=== PATIENT | male | born 1930 | race Caucasian/White ===

== ENCOUNTER 2019-02-09 09:10 | Inpatient (IN) | payer OTHER | END 2019-02-10 18:20 | disposition home health service (06) | LOC: ER 09:10 → TELE-EAST 11:26 | DX: I24.9 Acute ischemic heart disease, unspecified (principal); I11.9 Hypertensive heart disease without heart failure; I48.2 Chronic atrial fibrillation; E11.9 Type 2 diabetes mellitus without complications ==

== ENCOUNTER 2020-03-29 08:28 | Inpatient (IN) | payer OTHER ==
[~2020-03-29] VITALS: Ht 167.6 cm; Wt 68.3 kg
[~2020-03-29 08:28] MED LIST: APIX2.5T PO; ATOR20TA50 PO; LEVEMIR SC; METF-371 PO; METO-159 PO; RANI300C7 PO; SITA100T7 PO
[2020-03-29 09:47] LABS: Basophils # (auto) 0.1 10 ^3/uL (0-0.2); Basophils % (auto) 0.6 % (0.0-2.0); Eosinophils # (auto) 0.2 10 ^3/uL (0-0.8); Eosinophils % (auto) 1.2 % (0.0-7.0); Hematocrit 42.9 % (41.0-53.0); Hemoglobin 13.9 g/dL (13.5-17.5); Lymphocytes # (auto) 1.1 10 ^3/uL (0.4-5.4); Lymphocytes % (auto) 9.2 % (10.0-50.0); Mean Corpuscular Hemoglobin 30.9 pg (28.0-32.0); Mean Corpuscular Hgb Conc. 32.3 g/dL (32.0-36.0); Mean Corpuscular Volume 95.7 fL (80.0-100.0); Monocytes # (auto) 0.6 10 ^3/uL (0-1.3); Neutrophils # (auto) 10.5 10 ^3/uL (1.6-8.6); Nucleated Red Blood Cells % 0.1 %; Platelet Count (auto) 178 10^3/uL (140-450); Red Blood Cells 4.48 10^6/uL (4.5-5.90); Red Cell Distribution Width 13.6 % (11.8-14.3); White Blood Cell 12.5 10^3/uL (4.4-10.8)
[2020-03-29 10:04] LABS: Magnesium 2.2 mg/dL (1.6-2.6)
[2020-03-29 10:05] LABS: Albumin 3.2 g/dL (3.4-5.0); Calcium 9.1 mg/dL (8.5-10.1); Potassium 4.8 mmol/L (3.5-5.1)
[2020-03-29 10:07] LABS: BUN/Creatinine Ratio 12.8
[2020-03-29 10:10] LABS: Bilirubin, Total 0.7 mg/dL (0.2-1.0); Total Protein 6.6 g/dL (6.4-8.2)
[2020-03-29 10:16] LABS: INR 1.08 (0.9-1.15); Partial Thromboplastin Time 25.3 sec (23.0-31.2)
[2020-03-29] MEDS ORDERED: NITROGLYCERIN 0.4 MG SL TAB SL PRN (12:30)
[2020-03-29] MEDS ORDERED: ACETAMINOPHEN 325 MG TAB PO PRN (12:30)
[2020-03-29] MEDS ORDERED: MORPHINE SULF INJ 2 MG/ML SYRINGE 1ML IV PRN (12:30)
[2020-03-29] MEDS ORDERED: DEXTROSE (50%) 50ML SYRG IV PRN (12:30)
[2020-03-29] MEDS ORDERED: CLOP75TA28 PO (14:03)
[2020-03-29] MEDS ORDERED: OMEP-260 PO (14:03)
[2020-03-29] MEDS ORDERED: INSLANTI SC (14:03)
[2020-03-29] MEDS ORDERED: ATOR40TA52 PO (14:03)
[2020-03-29] MEDS ORDERED: LISI-646 PO (14:07)
[2020-03-29] MEDS ORDERED: AMLO-483 PO (14:11)
[2020-03-29] MEDS: HYDROcodone-ACET 5/325MG TAB PO PRN ×2 (15:00→22:08)
[2020-03-29] MEDS: ACCU-CHEK COMFORT CURVE STRIP VI SCH ×2 (17:45→22:08)
[2020-03-29] MEDS: InsuLIN REG 1unit/0.01ml Soln (100units/ml) SC SCH ×2 (17:45→22:07)
--- NOTE | 2020-03-29 21:55 | NUR ---
WOUND PHOTOS TO RIGHT FOREHEAD WOUND FORM FILLED OUT AND FILED.
[2020-03-29 22:00] VITALS: BP 120/71
--- NOTE | 2020-03-29 22:40 | NUR ---
SOLID FIBER PASTER OPERATOR CALLED FOR PERSONAL BELONGINGS PATIENT REQUESTS IN SAFE. WALLET WITH $459 IN AC, COUNTED BY TO RNs AND PATIENT. 5 CARDS; LAST 4 NUMBERS RECORDED. CAR KEYS AND 1 HEARING AID.
[2020-03-29 22:45] VITALS: BP 118/51
--- NOTE | 2020-03-29 23:00 | NUR ---
BELONGINGS BAG NUMBER [id number] ARTICLE DESCRIPTION ON THE FRONT OF THE BAG READS "CAR KEYS, HEARING AID, 459 DOLLARS AC, WALLET, CARDS [phone]" PLACED IN SECURE YEH AC PROFESSOR OF HISTORY GUIDANCE SECRETARY OFFICE.
[2020-03-30 05:00] VITALS: BP 149/69
[2020-03-30] MEDS: InsuLIN REG 1unit/0.01ml Soln (100units/ml) SC SCH ×4 (06:12→21:56)
[2020-03-30] MEDS: ACCU-CHEK COMFORT CURVE STRIP VI SCH ×4 (06:13→22:00)
--- NOTE | 2020-03-30 07:30 | NUR ---
RECEIVED REPORT AND CONTINUATION OF CARE,PATIENT AWAKE,ALERT,HARD OF HEARING,ON ROOM AIR,NO DISTRESS NO DISCOMFORT, LEFT ARM SHOULDER BRUISED AND SWOLLEN,LEFT ARM SLING IN USED,CALL LIGHT WITHIN REACH PATIENT REMINDED INSTRUCTED TO CALL FOR ASSISTANCE,PATIENT VERBALIZED UNDERSTANDING.
--- NOTE | 2020-03-30 08:15 | NUR ---
SON NATALIE CALLED (PASS WORD PROVIDED) UPDATED WITH PLAN OF CARE.
[2020-03-30 09:00] VITALS: BP 146/65
--- NOTE | 2020-03-30 09:05 | NUR ---
CALLED AND SPOKE TO PATIENT SON SEVERIANO (PASSWORD PROVIDED AND CONFIRMED) CLARIFIED DOSE OF PATIENT HOME MEDICATION AMLODIPINE,PER SEVERIANO ,PATIENT TAKES AMLODIPINE 2.5 MG PO 3X A DAY,HOSPITAL PHARMACY INFORMED.
--- NOTE | 2020-03-30 10:00 | NUR ---
PHYSICAL THERAPY OOB AMBULATED WITH PHYSICAL THERAPY USES WALKER IN HALLWAY,BACK TO BED TOLERATED ACTIVITY BU C/O LEFT UPPER ARM/SHOUILDER PAIN
[2020-03-30] MEDS: METOPROLOL TARTRATE 50 MG TAB PO SCH ×2 (10:36→21:57)
[2020-03-30] MEDS: HYDROcodone-ACET 5/325MG TAB PO PRN ×2 (10:38→19:53)
[2020-03-30] MEDS: LISINOPRIL 20 MG TAB PO SCH ×2 (10:38→21:58)
--- NOTE | 2020-03-30 10:38 | NUR ---
C/O LEFT UPPER ARM AND SHOULDER PAIN SCALE OF 8/10 MEDICATED WITH NORCO 5/325 1 TAB P[O, SEE eMAR FOR DETAIL
--- NOTE | 2020-03-30 12:10 | NUR ---
WOUND CARE NOTE: Wound care in to see patient per wound care request regarding "Right Forehead laceration" Bedside nurse took photograph of patient's wound upon admission for reference. Patient is 89 years old male with admitting diagnosis of Humerus Fracture. Patient is resting in bed in Rm. 220B. Patient is awake, alert and oriented. Patient is in no stated pain at this time and he appears to be in no pain using Coughlin Baez Faces Pain Scale. He's self turning and repositioning and his Junito score is 19. Patient had a fall and scheduled to have ORIF on 04/01/20. He has L arm sling. Patient noted with 2x1.8cm hyper granulating wound/growth to Rt forehead. Patient reported that "it started as pimple and just grow". 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 Cleansed patient's R forehead wound with NS, patted dry with gauze, applied Thera honey gauze and covered with Opti foam gentle dressing. Patient tolerated well.be din low position, call calix on hand, bed alarm on. No further wound care monitoring needed at this time. RECOMMENDATION: Nursing to continue with EOD/PRN dressing change to R forehead wound per MD order, redistribute pressure points with pillows. Addendum: 03/30/20 at 1709 by Sunshine Dean RN Amended: Links added.
--- NOTE | 2020-03-30 12:20 | NUR ---
PATIENT SON SEVERIANO PICKED UP HOME MEDICATION IN X 2 CONTAINERS,SEE PATIENT BELONGINGS LIST
[2020-03-30 13:00] VITALS: BP 122/51
[2020-03-30] MEDS: OMEPRAZOLE 20MG/10ML ORAL SUSP PO SCH (13:23)
[2020-03-30] MEDS: amLODIPine BESYLATE 5 MG TAB PO SCH ×2 (15:15→21:58)
[2020-03-30 17:00] VITALS: BP 149/72
[2020-03-30] MEDS: ATORVASTATIN 20 MG TAB PO SCH (17:48)
--- NOTE | 2020-03-30 18:51 | NUR ---
NO C/O PAIN, NO DISTRESS,NO DISCOMFORT.
--- NOTE | 2020-03-30 19:53 | NUR ---
PAIN ASSESSMENT The patient reports having 8/10 left arm pain after being assisted from the bedside commode to the bed. Patient requested pain medication. Will administer PRN [place] and will reassess the patient's pain.
--- NOTE | 2020-03-30 21:00 | NUR ---
PAIN REASSESSMENT The patient's pain rates his pain as 5/10. Patient is resting comfortably in his bed. Will continue to monitor the patient's status.
[2020-03-30 22:00] VITALS: BP 128/70
[2020-03-30 22:16] LABS: Basophils # (auto) 0 10 ^3/uL (0-0.2); Basophils % (auto) 0.4 % (0.0-2.0); Eosinophils # (auto) 0.1 10 ^3/uL (0-0.8); Eosinophils % (auto) 0.9 % (0.0-7.0); Hematocrit 35.2 % (41.0-53.0); Hemoglobin 11.5 g/dL (13.5-17.5); Lymphocytes # (auto) 2.1 10 ^3/uL (0.4-5.4); Mean Corpuscular Hemoglobin 31.2 pg (28.0-32.0); Mean Corpuscular Hgb Conc. 32.7 g/dL (32.0-36.0); Mean Corpuscular Volume 95.3 fL (80.0-100.0); Monocytes # (auto) 1.2 10 ^3/uL (0-1.3); Monocytes % (auto) 9.9 % (0.0-12.0); Neutrophils # (auto) 8.4 10 ^3/uL (1.6-8.6); Neutrophils % (auto) 70.8 % (37.0-80.0); Nucleated Red Blood Cells % 0.1 %; Platelet Count (auto) 131 10^3/uL (140-450); Red Cell Distribution Width 13.6 % (11.8-14.3); White Blood Cell 11.8 10^3/uL (4.4-10.8)
[2020-03-30 22:31] LABS: Calcium 8.6 mg/dL (8.5-10.1); Potassium 4.1 mmol/L (3.5-5.1)
[2020-03-31 05:00] VITALS: BP 163/87
[2020-03-31] MEDS: amLODIPine BESYLATE 5 MG TAB PO SCH ×3 (06:30→22:00)
[2020-03-31] MEDS: InsuLIN REG 1unit/0.01ml Soln (100units/ml) SC SCH ×4 (06:31→22:00)
[2020-03-31] MEDS: ACCU-CHEK COMFORT CURVE STRIP VI SCH ×4 (06:32→22:00)
--- NOTE | 2020-03-31 07:30 | NUR ---
Opening Shift Note Assumed care of patient, awake and alert. No S/S of distress/SOB or pain. Instructed on POC and to call for assist PRN, will continue to monitor for changes Q1hr and PRN. Left arm in sling. Extensive dark bruising to left upper arm.
[2020-03-31 07:37] LABS: Basophils # (auto) 0 10 ^3/uL (0-0.2); Basophils % (auto) 0.3 % (0.0-2.0); Eosinophils # (auto) 0.1 10 ^3/uL (0-0.8); Eosinophils % (auto) 0.7 % (0.0-7.0); Hemoglobin 12.2 g/dL (13.5-17.5); Lymphocytes % (auto) 18.1 % (10.0-50.0); Mean Corpuscular Hemoglobin 30.8 pg (28.0-32.0); Mean Corpuscular Hgb Conc. 32.1 g/dL (32.0-36.0); Mean Corpuscular Volume 95.7 fL (80.0-100.0); Neutrophils # (auto) 7.9 10 ^3/uL (1.6-8.6); Neutrophils % (auto) 71.9 % (37.0-80.0); Platelet Count (auto) 144 10^3/uL (140-450); Red Blood Cells 3.97 10^6/uL (4.5-5.90)
[2020-03-31 07:56] LABS: BUN/Creatinine Ratio 21.3; Calcium 8.6 mg/dL (8.5-10.1); Potassium 3.5 mmol/L (3.5-5.1)
--- NOTE | 2020-03-31 08:00 | NUR ---
OOB to chair.
[2020-03-31 09:00] VITALS: BP 134/70
--- NOTE | 2020-03-31 09:49 | NUR ---
Patient assisted back to bed.
[2020-03-31] MEDS: LISINOPRIL 20 MG TAB PO SCH ×2 (10:21→22:01)
[2020-03-31] MEDS: OMEPRAZOLE 20MG/10ML ORAL SUSP PO SCH (10:21)
[2020-03-31] MEDS: METOPROLOL TARTRATE 50 MG TAB PO SCH ×2 (10:22→22:00)
[2020-03-31 13:00] VITALS: BP 118/64
--- NOTE | 2020-03-31 13:35 | NUR ---
Patient assisted to BSC. Call light in reach. Patient instructed to call for assist when finished.
[2020-03-31] MEDS: HYDROcodone-ACET 5/325MG TAB PO PRN (16:01)
--- NOTE | 2020-03-31 16:03 | NUR ---
Patient had small hard BM. Dr. Clarence Wne informed. Order received for Miralax. Signed: 03/31/20 at 1604 by Alina iMlls RN RN Addendum: 03/31/20 at 1606 by Alina Mills RN RN Category: sravanthi SUE Signed: 03/31/20 at 1606 by Alina Mills RN RN
[2020-03-31] MEDS ORDERED: POLYETHYLENE GLYCOL 17 GM PWDR PO PRN (16:15)
[2020-03-31 17:00] VITALS: BP 124/70
[2020-03-31] MEDS: ATORVASTATIN 20 MG TAB PO SCH (17:32)
--- NOTE | 2020-03-31 19:15 | NUR ---
Opening Shift Note Assumed care of patient, awake and alert. No S/S of distress/SOB. Patient reports having left arm pain with movement but states that he pain is tolerable. Patient has been assisted to the bed side commode and back to bed. Instructed on POC and to call for assist PRN, will continue to monitor for changes Q1hr and PRN.
[2020-03-31 22:23] VITALS: BP 140/66
[2020-04-01 05:04] VITALS: BP 161/78
[2020-04-01] MEDS: amLODIPine BESYLATE 5 MG TAB PO SCH ×3 (06:00→22:49)
[2020-04-01] MEDS: InsuLIN REG 1unit/0.01ml Soln (100units/ml) SC SCH ×4 (06:57→22:50)
[2020-04-01] MEDS: ACCU-CHEK COMFORT CURVE STRIP VI SCH ×4 (07:00→22:50)
[2020-04-01 07:16] LABS: Basophils # (auto) 0 10 ^3/uL (0-0.2); Basophils % (auto) 0.4 % (0.0-2.0); Eosinophils # (auto) 0.1 10 ^3/uL (0-0.8); Eosinophils % (auto) 1.3 % (0.0-7.0); Hematocrit 35.5 % (41.0-53.0); Hemoglobin 11.6 g/dL (13.5-17.5); Lymphocytes # (auto) 1.7 10 ^3/uL (0.4-5.4); Mean Corpuscular Hgb Conc. 32.7 g/dL (32.0-36.0); Mean Corpuscular Volume 94.9 fL (80.0-100.0); Monocytes # (auto) 1.1 10 ^3/uL (0-1.3); Monocytes % (auto) 10.4 % (0.0-12.0); Neutrophils # (auto) 7.2 10 ^3/uL (1.6-8.6); Neutrophils % (auto) 70.9 % (37.0-80.0); Nucleated Red Blood Cells % 0.1 %; Platelet Count (auto) 136 10^3/uL (140-450); Red Blood Cells 3.74 10^6/uL (4.5-5.90); Red Cell Distribution Width 13.5 % (11.8-14.3); White Blood Cell 10.1 10^3/uL (4.4-10.8)
[2020-04-01] MEDS ORDERED: BUPIVACAINE 0.25% INJ 50ML VIAL ONE (07:16)
[2020-04-01] MEDS ORDERED: BUPIVACAINE 0.5% P/F INJ 10 ML VIAL ONE (07:16)
[2020-04-01] MEDS ORDERED: BUPIVACAINE W/ EPINEPH 0.25% INJ 50ML MDV ONE (07:16)
[2020-04-01 07:37] LABS: Potassium 3.7 mmol/L (3.5-5.1)
[2020-04-01] MEDS ORDERED: fentaNYL CITRATE 100 MCG/2 ML VL ONE (07:41)
[2020-04-01] MEDS ORDERED: MORPHINE SULF(PF) 0.5MG/ML 10ML VIAL ONE ×2 (07:41→07:54)
[2020-04-01 07:42] LABS: BUN/Creatinine Ratio 20.5; Calcium 8.6 mg/dL (8.5-10.1)
[2020-04-01] MEDS ORDERED: MIDAZOLAM HCL 1MG/1ML-2 ML VIAL ONE (07:42)
[2020-04-01] MEDS ORDERED: CLINDAMYCIN 600MG IV 50 ML IV ONE (07:47)
[2020-04-01] MEDS ORDERED: SUCCINYLCHOLINE CHLORIDE 20 MG/ML 10ML VIAL IV ONE (07:56)
[2020-04-01] MEDS ORDERED: PHENYLEPHRINE HCL 10 MG/ML VL IV ONE (08:05)
[2020-04-01] MEDS ORDERED: ETOMIDATE (2MG/ML) 20ML VIAL IV ONE (08:42)
[2020-04-01] MEDS ORDERED: DexAMETHasone SOD PHOS 10MG/1ML VIAL INJ ONE (08:42)
[2020-04-01] MEDS: METOPROLOL TARTRATE 50 MG TAB PO SCH ×2 (09:07→22:45)
[2020-04-01] MEDS: LISINOPRIL 20 MG TAB PO SCH ×2 (09:08→22:48)
[2020-04-01] MEDS: OMEPRAZOLE 20MG/10ML ORAL SUSP PO SCH (09:08)
[2020-04-01] MEDS ORDERED: LABETALOL HCL 5 MG/ML 4ML SYRINGE IV PRN (09:15)
[2020-04-01] MEDS ORDERED: ePHEDrine SULFATE 50 MG/ML AMP IV PRN (09:15)
[2020-04-01] MEDS ORDERED: ONDANSETRON HCL 4 MG/2 ML VIAL IV PRN (09:15)
[2020-04-01] MEDS ORDERED: ACCU-CHEK COMFORT CURVE STRIP VI ONE (09:15)
[2020-04-01] MEDS ORDERED: MORPHINE SULFATE 4 MG/ML SYR/VIAL IV PRN (09:15)
--- NOTE | 2020-04-01 10:53 | NUR ---
PT Pt went down for procedure, will attempt PAlina later. Signed: 04/01/20 at 1054 by TOYA FERNANDES PTT <Co-Signature Required> Co-Signed: 04/01/20 at 1054 by Saturnino Calvo PT Addendum: 04/01/20 at 1054 by TOYA FERNANDES PTT Amended: Links added.
[2020-04-01 13:00] VITALS: BP 144/67
--- NOTE | 2020-04-01 14:27 | NUR ---
Est energy needs [id number] kcal (25-27 kcal/kg BW 61.6kg) Est protein needs 49-62g (0.8-1g/kg BW 61.6kg) Will reassess prn Addendum: 04/01/20 at [address] Amended: Links added.
[2020-04-01] MEDS: ceFAZolin 1GM/50ML 50 ML IV SCH ×2 (16:11→22:44)
[2020-04-01] MEDS: LACTATED RINGER'S 1,000 ML IV SCH (16:11)
[2020-04-01 17:00] VITALS: BP 120/59
--- NOTE | 2020-04-01 17:30 | NUR ---
DR ARCHER PAGED FOR DISCHARGE CLEARANCE FOR DR Yue HOWARD. DR ARCHER'S OFFICE INFORMED ME THAT THEY WOULD PAGE HIM SEVERAL TIMES TO GIVE HIM MESSAGE.
[2020-04-01] MEDS: ATORVASTATIN 20 MG TAB PO SCH (18:04)
--- NOTE | 2020-04-01 19:55 | NUR ---
OPENING NOTE Received report from day shift RN. Patient is A&O X's 4 with no s/s of distress and reports no pain. Educated patient on POC and to use call light when in need of any assistance. Patient verbalized understanding. Patient given post op education as ordered by MD. Patient with IS at bedside and instructed to use it. Patient's sensation to bilateral hands are strong. Patient's left hand appears swollen. Patient has good movement with hands. Patient instructed that he is non weight bearing to left arm but some movement is okay, per MD. Patient verbalized understanding. Left arm is in sling. Sling and bandage to left forearm saturated in blood. Blood also on sheets. Will change gauze as ordered by MD and new bed sheets. Bed alarm is on. Bed is in lowest/locked position with side rails up X's 2 and call light is within reach of patient.
[2020-04-01 22:00] VITALS: BP 123/68
[2020-04-01] MEDS: SODIUM CHLOR 0.9% PF (SALINE LOCK) 10ML VIAL/SYR IV SCH (22:50)
--- NOTE | 2020-04-02 00:42 | NUR ---
PATIENT TO COMMODE HAD A MEDIUM BM.
[2020-04-02] MEDS: LACTATED RINGER'S 1,000 ML IV SCH ×2 (01:10→11:10)
[2020-04-02] MEDS: ceFAZolin 1GM/50ML 50 ML IV SCH (03:06)
[2020-04-02 05:00] VITALS: BP 139/71
--- NOTE | 2020-04-02 05:02 | NUR ---
NOTE Patient assisted to the commode and back into bed at this time. No distress noted. Patient tolerated well. Patient's right arm appeared to have some swelling from a coban applied. removed bracelets to this wrist. Surgical site has minimal drainage. Sling is still applied. Patient can move his fingers well and has good sensation. Call light is within reach and bed alarm on.
[2020-04-02] MEDS: ACCU-CHEK COMFORT CURVE STRIP VI SCH ×4 (06:34→21:23)
[2020-04-02] MEDS: SODIUM CHLOR 0.9% PF (SALINE LOCK) 10ML VIAL/SYR IV SCH ×3 (06:34→21:26)
[2020-04-02] MEDS: InsuLIN REG 1unit/0.01ml Soln (100units/ml) SC SCH ×4 (06:34→21:23)
[2020-04-02] MEDS: amLODIPine BESYLATE 5 MG TAB PO SCH ×3 (06:36→21:25)
--- NOTE | 2020-04-02 06:59 | NUR ---
IV ACCESS Patient found with IV to right wrist pulled out by accident. Catheter was fully intact. No trauma noted to site. Applied gauze to site. Attempted one time to insert IV and was unable to at this time. Will inform day shift RN.
[2020-04-02 08:00] VITALS: BP 117/55
[2020-04-02 09:00] VITALS: BP 117/55
[2020-04-02] MEDS: OMEPRAZOLE 20MG/10ML ORAL SUSP PO SCH (09:23)
[2020-04-02] MEDS: METOPROLOL TARTRATE 50 MG TAB PO SCH ×2 (09:25→21:24)
[2020-04-02] MEDS: LISINOPRIL 20 MG TAB PO SCH ×2 (09:26→21:25)
[2020-04-02 10:01] LABS: Basophils # (auto) 0 10 ^3/uL (0-0.2); Basophils % (auto) 0.1 % (0.0-2.0); Eosinophils # (auto) 0 10 ^3/uL (0-0.8); Hematocrit 33.3 % (41.0-53.0); Hemoglobin 10.7 g/dL (13.5-17.5); Lymphocytes # (auto) 1.3 10 ^3/uL (0.4-5.4); Lymphocytes % (auto) 7.5 % (10.0-50.0); Mean Corpuscular Hemoglobin 30.6 pg (28.0-32.0); Mean Corpuscular Hgb Conc. 32.2 g/dL (32.0-36.0); Monocytes % (auto) 6.2 % (0.0-12.0); Neutrophils # (auto) 14.5 10 ^3/uL (1.6-8.6); Neutrophils % (auto) 86.2 % (37.0-80.0); Platelet Count (auto) 168 10^3/uL (140-450); Red Cell Distribution Width 13.9 % (11.8-14.3); White Blood Cell 16.8 10^3/uL (4.4-10.8)
[2020-04-02 10:18] LABS: BUN/Creatinine Ratio 14.5; Calcium 8.9 mg/dL (8.5-10.1); Potassium 3.9 mmol/L (3.5-5.1)
--- NOTE | 2020-04-02 10:31 | NUR ---
CALLED THE OFFICE OF DR ARCHER IN REGARDS TO DISCHARGE CLEARANCE AND ORDERS TO WHEN THE PATIENT IS TO RESUME HIS ELEQUIS PER THE REQUEST OF DR Clarence HOWARD. AWAITING RETURN CALL FROM DR ARCHER.
--- NOTE | 2020-04-02 10:37 | NUR ---
RECEIVED RETURN CALL FROM DR ARCHER IN REGARDS TO DISCHARGE CLEARANCE AND WHEN TO RESTART THE PATIENT'S ELEQUIS. DR ARCHER INFORMED ME THAT THE PATIENT IS CLEAR FOR DISCHARGE FROM A SURGERY/ ORTHOPEDICS STANDPOINT. HE ALSO INFORMED ME THAT THE PATIENT MAY RESTART THE ELEQUIS TODAY.
--- NOTE | 2020-04-02 11:51 | NUR ---
Assessment Patient is a 89-year-old male who is alert and oriented. Prior to admission patient lived home alone and functioned independently. Per patient he has a walker and cane for home use. Per patient he can care for his own ADLs. Advised patient there is a social service consult for SNF placement. Per patient he does not want to be placed at a skill nursing facility and would like to return home. Per patient his son Cristóbal ) will be staying with him until he gets better. Per patient his son Cristóbal will be transporting him home upon discharge day. Informed patient I will inform bedside nurse regarding orders for home health. Informed patient clinical information will be faxed to contracted agency with health plan. Informed patient he has the right to participate in all discharge planning. Patient verbalized understanding. Advised LINETTE Cotto patient does not want to be placed at a SNF and would like to return home. Per LINETTE Cotto he will update order to [facility] for safety evaluation and physical therapy. Faxed clinical information to [facility]. Pending acceptance. Addendum: 04/02/20 at 1152 by SLY PEREZ Amended: Links added.
--- NOTE | 2020-04-02 11:56 | NUR ---
D/C Planning Received a follow up called from Sharron with [facility] advising me patient has been accepted and they will see patient within 24-48hrs upon d/c day. faxed clinical information to [facility] medical group requesting authorization. Placed call to BEA Wolf with [facility] at 11:56 advising her [facility] has accepted patient. Per BEA Wolf they will provide authorization to [facility].
[2020-04-02 13:00] VITALS: BP 131/69
[2020-04-02 13:01] LABS: Basophils # (auto) 0.1 10 ^3/uL (0-0.2); Basophils % (auto) 0.4 % (0.0-2.0); Eosinophils # (auto) 0 10 ^3/uL (0-0.8); Hemoglobin 10.9 g/dL (13.5-17.5); Lymphocytes # (auto) 1.1 10 ^3/uL (0.4-5.4); Lymphocytes % (auto) 6.1 % (10.0-50.0); Mean Corpuscular Hemoglobin 30.6 pg (28.0-32.0); Mean Corpuscular Volume 95.5 fL (80.0-100.0); Monocytes # (auto) 1.5 10 ^3/uL (0-1.3); Neutrophils # (auto) 14.5 10 ^3/uL (1.6-8.6); Neutrophils % (auto) 84.5 % (37.0-80.0); Platelet Count (auto) 171 10^3/uL (140-450); Red Blood Cells 3.56 10^6/uL (4.5-5.90); Red Cell Distribution Width 13.6 % (11.8-14.3); White Blood Cell 17.1 10^3/uL (4.4-10.8)
[2020-04-02] MEDS: SULFAMETHOX W/TRIMETH(800/160MG) DS TAB PO SCH ×2 (15:15→21:25)
[2020-04-02 17:00] VITALS: BP 131/77
[2020-04-02] MEDS: SODIUM CHLORIDE 0.9% 1,000 ML IV SCH (17:00)
[2020-04-02] MEDS: ATORVASTATIN 20 MG TAB PO SCH (17:07)
--- NOTE | 2020-04-02 19:00 | NUR ---
OPENING NOTE Received report from day shift RN. Patient is A&O X's 4 with no s/s of distress and reports no pain. Educated patient on POC and to use call light when in need of any assistance. Patient verbalized understanding. Bed is in lowest/locked position with side rails up X's 2 and call light is within reach of patient. Bed alarm is set for safety. Patient's left arm remains in sling. Will continue care.
[2020-04-02] MEDS: APIXABAN 2.5 MG TAB PO SCH (21:24)
--- NOTE | 2020-04-02 22:00 | NUR ---
DRESSING CHANGE Removed saturated gauze to lower left forearm and applied new 4X4's gauze to site as ordered by MD. Patient tolerated dressing change well. Patient reports no pain. Applied new gown to patient at this time. Bed alarm on and call light is within reach. Will continue care.
[2020-04-02 22:19] VITALS: BP 133/67
[2020-04-02 22:22] LABS: Urine Bacteria NONE SEEN /hpf (None Seen); Urine Blood Negative /uL (Negative); Urine Specific Gravity 1.008 (1.001-1.035); Urine WBC <1 /hpf (0 - 3)
[2020-04-03] MEDS: SODIUM CHLORIDE 0.9% 1,000 ML IV SCH ×2 (02:30→12:35)
[2020-04-03 05:11] VITALS: BP 137/74
[2020-04-03] MEDS: SODIUM CHLOR 0.9% PF (SALINE LOCK) 10ML VIAL/SYR IV SCH ×2 (06:05→14:53)
[2020-04-03] MEDS: amLODIPine BESYLATE 5 MG TAB PO SCH ×2 (06:11→14:53)
[2020-04-03] MEDS: InsuLIN REG 1unit/0.01ml Soln (100units/ml) SC SCH ×3 (06:45→18:03)
[2020-04-03] MEDS: ACCU-CHEK COMFORT CURVE STRIP VI SCH ×3 (06:46→18:02)
[2020-04-03 08:32] VITALS: BP 111/53
[2020-04-03] MEDS: APIXABAN 2.5 MG TAB PO SCH (09:26)
[2020-04-03] MEDS: SULFAMETHOX W/TRIMETH(800/160MG) DS TAB PO SCH (09:29)
[2020-04-03] MEDS: LISINOPRIL 20 MG TAB PO SCH (09:30)
[2020-04-03] MEDS: OMEPRAZOLE 20MG/10ML ORAL SUSP PO SCH (09:30)
[2020-04-03] MEDS: METOPROLOL TARTRATE 50 MG TAB PO SCH (09:30)
[2020-04-03 12:58] VITALS: BP 119/69
[2020-04-03] MEDS ORDERED: SULF400T11 PO (16:31)
[2020-04-03 17:14] VITALS: BP 121/76
[2020-04-03 17:29] LABS: Basophils # (auto) 0 10 ^3/uL (0-0.2); Basophils % (auto) 0.1 % (0.0-2.0); Eosinophils # (auto) 0 10 ^3/uL (0-0.8); Eosinophils % (auto) 0.1 % (0.0-7.0); Hematocrit 29.8 % (41.0-53.0); Hemoglobin 9.8 g/dL (13.5-17.5); Lymphocytes # (auto) 1.4 10 ^3/uL (0.4-5.4); Lymphocytes % (auto) 14.4 % (10.0-50.0); Mean Corpuscular Hemoglobin 31.2 pg (28.0-32.0); Mean Corpuscular Hgb Conc. 32.8 g/dL (32.0-36.0); Monocytes # (auto) 1.6 10 ^3/uL (0-1.3); Monocytes % (auto) 15.7 % (0.0-12.0); Neutrophils # (auto) 6.9 10 ^3/uL (1.6-8.6); Neutrophils % (auto) 69.7 % (37.0-80.0); Nucleated Red Blood Cells % 0.1 %; Platelet Count (auto) 169 10^3/uL (140-450); Red Blood Cells 3.13 10^6/uL (4.5-5.90); Red Cell Distribution Width 13.6 % (11.8-14.3); White Blood Cell 9.9 10^3/uL (4.4-10.8)
[2020-04-03] MEDS: ATORVASTATIN 20 MG TAB PO SCH (18:02)
--- NOTE | 2020-04-03 19:55 | NUR ---
PER DR. HOWARD, PATIENT OK TO DISCHARGE. WILL PREPARE PAPERWORK AND PATIENT FOR DISCHARGE.
[2020-04-03 19:56] VITALS: BP 121/76
[2020-04-03 20:16] VITALS: BP 119/69
== END 2020-04-03 21:30 | disposition home health service (06) | DRG 493 ==
LOC: ER 08:28 → EDBD 08:28 → TELE 08:29 → TELE-CENTR 20:40
PROVIDERS: ADMIT Internal Medicine; ATTEND Internal Medicine
PROC: 0PSD06Z Reposition Left Humeral Head with Intramedullary Internal Fixation Device, Open Approach (ICD-10-PCS; principal; 2020-04-01 08:15)
DX: S42.292A Other displaced fracture of upper end of left humerus, initial encounter for closed fracture (principal); S22.31XA Fracture of one rib, right side, initial encounter for closed fracture; E44.0 Moderate protein-calorie malnutrition; W01.0XXA Fall on same level from slipping, tripping and stumbling without subsequent striking against object, initial encounter; Y93.01 Activity, walking, marching and hiking; Y99.8 Other external cause status; Y92.89 Other specified places as the place of occurrence of the external cause; Z86.73 Personal history of transient ischemic attack (TIA), and cerebral infarction without residual deficits; I25.10 Atherosclerotic heart disease of native coronary artery without angina pectoris; I25.2 Old myocardial infarction; I35.8 Other nonrheumatic aortic valve disorders; I48.91 Unspecified atrial fibrillation; E11.9 Type 2 diabetes mellitus without complications; E78.5 Hyperlipidemia, unspecified; I11.0 Hypertensive heart disease with heart failure; K21.9 Gastro-esophageal reflux disease without esophagitis; Z88.0 Allergy status to penicillin; D72.829 Elevated white blood cell count, unspecified; I50.9 Heart failure, unspecified; I70.0 Atherosclerosis of aorta; Z79.01 Long term (current) use of anticoagulants; Z80.0 Family history of malignant neoplasm of digestive organs; Z82.49 Family history of ischemic heart disease and other diseases of the circulatory system; Z86.74 Personal history of sudden cardiac arrest; Z87.891 Personal history of nicotine dependence; Z88.6 Allergy status to analgesic agent; Z79.899 Other long term (current) drug therapy; Z68.24 Body mass index [BMI] 24.0-24.9, adult; Z20.828 Contact with and (suspected) exposure to other viral communicable diseases
CPT/HCPCS: 36415; 70450; 71045; 72192; 73020; 73060; 73200; 80048; 80053; 81001; 82962; 83735; 83880; 84484; 85025; 85610; 85730; 86850; 86900; 86901; 87040; 87086; 93005; 93306; 97116; 97163; C1713; G0378; J0330; J0690; J1100; J1815; J2250; J3490

== ENCOUNTER 2020-04-09 10:50 | Inpatient (IN) | payer OTHER ==
[~2020-04-09] VITALS: Ht 172.7 cm; Wt 81.6 kg
[~2020-04-09 10:50] MED LIST changes: +AMLO-483 PO; -ATOR20TA50 PO; +ATOR40TA52 PO; +CLOP75TA28 PO; +INSLANTI SC; -LEVEMIR SC; +LISI-646 PO; +OMEP-260 PO; -RANI300C7 PO; +SULF400T11 PO
[2020-04-09] MEDS ORDERED: SODIUM CHLORIDE 0.9% 500 ML IVB ONE (10:51)
[2020-04-09 11:31] LABS: Basophils # (auto) 0 10 ^3/uL (0-0.2); Basophils % (auto) 0.3 % (0.0-2.0); Eosinophils # (auto) 0 10 ^3/uL (0-0.8); Hematocrit 33.3 % (41.0-53.0); Hemoglobin 10.9 g/dL (13.5-17.5); Lymphocytes # (auto) 0.6 10 ^3/uL (0.4-5.4); Lymphocytes % (auto) 6.9 % (10.0-50.0); Mean Corpuscular Hemoglobin 30.7 pg (28.0-32.0); Mean Corpuscular Hgb Conc. 32.7 g/dL (32.0-36.0); Mean Corpuscular Volume 93.9 fL (80.0-100.0); Monocytes # (auto) 0.4 10 ^3/uL (0-1.3); Monocytes % (auto) 4.4 % (0.0-12.0); Neutrophils # (auto) 8.1 10 ^3/uL (1.6-8.6); Neutrophils % (auto) 88.4 % (37.0-80.0); Platelet Count (auto) 257 10^3/uL (140-450); Red Blood Cells 3.55 10^6/uL (4.5-5.90); Red Cell Distribution Width 14.1 % (11.8-14.3); White Blood Cell 9.2 10^3/uL (4.4-10.8)
[2020-04-09 12:03] LABS: Albumin 2.4 g/dL (3.4-5.0); Calcium 8.4 mg/dL (8.5-10.1); Potassium 4.6 mmol/L (3.5-5.1)
[2020-04-09 12:05] LABS: Lactic Acid w/Reflex 4.1 mmol/L (0.4-2.0)
[2020-04-09 12:09] LABS: BUN/Creatinine Ratio 21.2; Bilirubin, Total 0.7 mg/dL (0.2-1.0)
[2020-04-09] MEDS ORDERED: MORPHINE SULF INJ 2 MG/ML SYRINGE 1ML IV PRN (15:30)
[2020-04-09] MEDS ORDERED: NITROGLYCERIN 0.4 MG SL TAB SL PRN (15:30)
[2020-04-09] MEDS: SOD CHL 0.45% 1,000 ML IV SCH (15:56)
[2020-04-09 17:07] LABS: Urine Bacteria NONE SEEN /hpf (None Seen); Urine Blood 2+ /uL (Negative); Urine WBC 1 /hpf (0 - 3)
--- NOTE | 2020-04-09 17:30 | NUR ---
Telemetry admit from ER [place] admitted to Telemetry unit after verbal report received from LINETTE Frost, ER. Patient oriented to Capri Mackenzie, primary RN, unit, room, bed, and unit policies regarding patient care and visiting hours. Patient is awake, alert and oriented X4, although speech is garbled, possibly from dry mouth. Right anterior forehead scab with bandage. Patient placed on O2 @ 4 LPM via nasal cannula with sats @ 92%. Tele# 95, sinus rhythm @ 79 bpm. IV to right antecubital, 20 gauge, patent and infusing 0.45% NS @ 100 ml/hr. Patient has stitches to left shoulder, S/P left humerus ORIF from previous visit on 01/2020, open to air, clean dry and intact. Left arm is severely bruised with 2+ pitting edema. Skin tears to bilateral lower forearm, Thera honey applied to both with Optifoam dressings applied, wound care pictures taken. Attempted to contact Cristóbal, patient's son, @ [phone], unable to leave a message, mailbox full. Spoke to other son Tam, unable to get home medications as Cristóbal lives with patient and Tam lives in [place]. Bed locked, in lowest position, call light within reach, will continue to monitor Q 1 hour and PRN. All questions and concerns addressed, patient verbalized understanding.
[2020-04-09 18:06] VITALS: BP 112/50
--- NOTE | 2020-04-09 18:15 | NUR ---
PERSONAL BELONGINGS Patient's wallet placed in personal belongings bag with Abiola Pza RN, as a witness. Informed LINETTE Austin, Stone Carver to continuous pickling line pickler and place in Safe per patient's request. Gevoanna verbalized understanding.
--- NOTE | 2020-04-09 19:15 | NUR ---
Care endorsed to LINETTE Mccoy, night nurse. LINETTE Austin, Campus Police Officer never picked up patient's wallet. Given to LINETTE Mccoy, night nurse.
[2020-04-09 22:00] VITALS: BP 144/69
[2020-04-10] MEDS: SOD CHL 0.45% 1,000 ML IV SCH ×3 (01:59→23:17)
[2020-04-10] MEDS: HYDROcodone-ACET 5/325MG TAB PO PRN ×2 (02:00→15:21)
[2020-04-10 05:00] VITALS: BP 115/57
[2020-04-10 05:40] LABS: Basophils # (auto) 0 10 ^3/uL (0-0.2); Basophils % (auto) 0.1 % (0.0-2.0); Eosinophils # (auto) 0 10 ^3/uL (0-0.8); Hematocrit 29.5 % (41.0-53.0); Hemoglobin 9.8 g/dL (13.5-17.5); Lymphocytes # (auto) 1.2 10 ^3/uL (0.4-5.4); Lymphocytes % (auto) 8.2 % (10.0-50.0); Mean Corpuscular Hgb Conc. 33.1 g/dL (32.0-36.0); Mean Corpuscular Volume 93.7 fL (80.0-100.0); Monocytes # (auto) 0.3 10 ^3/uL (0-1.3); Monocytes % (auto) 2.3 % (0.0-12.0); Neutrophils # (auto) 12.5 10 ^3/uL (1.6-8.6); Neutrophils % (auto) 89.4 % (37.0-80.0); Platelet Count (auto) 229 10^3/uL (140-450); Red Blood Cells 3.15 10^6/uL (4.5-5.90)
[2020-04-10 06:03] LABS: Albumin 1.9 g/dL (3.4-5.0); BUN/Creatinine Ratio 23.6; Bilirubin, Total 0.6 mg/dL (0.2-1.0); Calcium 7.3 mg/dL (8.5-10.1); Magnesium 2.3 mg/dL (1.6-2.6); Total Protein 5.1 g/dL (6.4-8.2)
--- NOTE | 2020-04-10 06:51 | NUR ---
2220 Pt's wallet given to Anselmo Chavez to put in safe. Anselmo confirmed listed details. Pt's slip returned to pt.
--- NOTE | 2020-04-10 08:00 | NUR ---
ASSESSMENT NOTE PT IS ALERT ORIENTED X4, RESTING IN BED IN LOW OBRIEN POSITION, GENERALIS WEAKNESS NOTED, SPEECH IS UNCLEAR, BUT REFLECT HIS WEAKNESS, LEFT SHOULDER SUTURES NOTED OPEN TO AIR, LEFT FOREARM WITH APPEAR ENLARGED WITH EDEMA AND ECCHYMOSIS, TENDER TO TOUCH, SCAB NOTED AT RT SIDE OF HIS FOREHEAD, COVERED WITH BAND AID, SKIN TEAR NOTED ON BOTH FOREARMS, PT IS INCONTINENT IN URINE, KEPT DRY AND CLEAN AT ALL TIMES, PLAN TO OFFER THE URINAL HOURLY, REPOSITION FROM SIDE TO SIDE CAREFULLY, ASSISTED WITH HIS MEALS
--- NOTE | 2020-04-10 08:15 | NUR ---
BREAKFAST ASSISTED PT WITH HIS MEALS
[2020-04-10 09:00] VITALS: BP 107/87
--- NOTE | 2020-04-10 10:00 | NUR ---
PHYSICAL THERAPY AT BED SIDE ASSISTING PT TO GET OUT OF BED AND SIT ON CHAIR AT BED SIDE
--- NOTE | 2020-04-10 10:55 | NUR ---
PHYSICAL THERAPY ASSITING PT TO GET BACK TO BED, PT TOLERATED WELL
--- NOTE | 2020-04-10 11:05 | NUR ---
WOUND CARE NOTE: Wound care in to see patient per wound care request regarding "skin tears to Right and left forearm" that are noted present on admission. Bedside nurse took photograph of patient's wounds upon admission for reference. Patient is 89 years old male with admitting diagnosis of Gen Weakness, CARIE, Lactic Acidosis. Patient is sitting in chair in Rm. 279B. Patient is awake, alert and oriented. Patient is in no stated pain at this time and he appears to be in no pain using Coughlin Baez Faces Pain Scale. His Junito score is 17. Patient's Rt (4x1.5cm) and Lt (1.5x4cm) forearm noted with open full thickness skin tear. Wounds are red with pink, purple kandy wound. Minimal serous drainage noted, no odor noted. Bedside nurse cleansed patient's skin tears, applied Thera honey gel and covered with Opti foam gentle dressing. Patient has history of fall had ORIF on 04/01/20 on his previous admission to [facility]. His bilateral arm noted with scattered ecchymosis but his L arm is edematous and limited in movement. Patient's Rt forehead noted with 2x2cm hyper granulating wound/skin growth, bedside nurse covered with dry dressing. Patient reported that he has history of excision carcinoma. Unable to assess patient's sacral and back as patient is sitting on a chair, unable to get him up myself for safety. Left patient sitting in chair, gave call calix and instructed to call if needed assistance, verbalized understanding. Per RN [place], patient has no sacral wound, however blanchable redness noted to sacrum perineum. Patient is receiving BID/PRN cleaning and application of Barrier cream to sacrum, perineum as preventative. RECOMMENDATION: Nursing to continue with EOD/PRN dressing change to bilateral forearm skin tear per MD order, BID/PRN cleaning and application of Barrier cream to sacrum, perineum as preventative, Dietary consult, frequent turning and repositioning schedule as condition permits, redistribute pressure points with pillows, continue monitoring by wound care while patient is hospitalized. Addendum: 04/10/20 at 1549 by Sunshine Dean RN Amended: Links added.
--- NOTE | 2020-04-10 11:24 | NUR ---
SPOKE WITH DR PERLA OVER THE PHONE, MADE AWARE OF PT, AND AWAITING FOR HIS HOME MEDS TO BE RESUMED, SAID THAT HE WILL BE HERE SOON
--- NOTE | 2020-04-10 12:26 | NUR ---
Nutrition Assessment/consult Notes please see attached link fro complete assessment Est energy needs BW 68 [id number] kcal (25-30 kcal/kg BW), Est protein needs: 68-88 g (1.0-1.3g/kg BW r/t chanel banerjee) Will reassess prn. Addendum: 04/10/20 at [address] Amended: Links added.
--- NOTE | 2020-04-10 12:30 | NUR ---
LUNCH ASSISTED PT WITH HIS MEALS, HEAD OF ELEVATED FOR ASPIRATION PRECAUTIONS
[2020-04-10 13:00] VITALS: BP 133/61
--- NOTE | 2020-04-10 15:15 | NUR ---
DR PERLA AT BED SIDE FOLLOWING UP ON PT AND ASSESSING PT LEFT ARM, INFORM PT THAT HE NEED TO AMBULATE WITH PHYSICAL THERAPY AND WE AIM FOR DISCHARGE HOME TOMORROW, PT VERBALIS UNDERSTANDING
--- NOTE | 2020-04-10 15:30 | NUR ---
DR PERLA CALLED PATIENT'S SON NATALIE FOR UPDATE, INFORM NATALIE WITH THE CARE PLAN AND VERBALIS UNDERSTANDING
[2020-04-10] MEDS: amLODIPine BESYLATE 5 MG TAB PO SCH ×2 (16:00→22:03)
[2020-04-10 17:00] VITALS: BP 123/55
--- NOTE | 2020-04-10 18:10 | NUR ---
DINNER ASSISTED OT WITH HIS MEALS, HEAD OF BED ELEVATED, PT IS EATING SLOWLY, CONTINUE MONITORING
--- NOTE | 2020-04-10 18:24 | NUR ---
PT CONTINUE STABLE, CONTINUE MONITORING
[2020-04-10] MEDS: METOPROLOL TARTRATE 50 MG TAB PO SCH (22:01)
[2020-04-10] MEDS: APIXABAN 2.5 MG TAB PO SCH (22:01)
[2020-04-10] MEDS: ATORVASTATIN 20 MG TAB PO SCH (22:02)
[2020-04-10] MEDS: LISINOPRIL 20 MG TAB PO SCH (22:03)
[2020-04-10 22:19] VITALS: BP 138/58
[2020-04-11 06:00] VITALS: BP 130/62
[2020-04-11] MEDS: amLODIPine BESYLATE 5 MG TAB PO SCH ×3 (06:45→21:52)
[2020-04-11] MEDS: SOD CHL 0.45% 1,000 ML IV SCH ×2 (07:16→17:11)
[2020-04-11 08:00] VITALS: BP 129/73
--- NOTE | 2020-04-11 08:20 | NUR ---
Dr. Moss at unit to see pt. Orders received for pt to have PT BID. Paged PT.
[2020-04-11 08:46] LABS: Basophils # (auto) 0.1 10 ^3/uL (0-0.2); Basophils % (auto) 0.5 % (0.0-2.0); Eosinophils # (auto) 0 10 ^3/uL (0-0.8); Hematocrit 34.3 % (41.0-53.0); Lymphocytes # (auto) 0.7 10 ^3/uL (0.4-5.4); Lymphocytes % (auto) 6.3 % (10.0-50.0); Mean Corpuscular Volume 93.8 fL (80.0-100.0); Monocytes # (auto) 0.2 10 ^3/uL (0-1.3); Monocytes % (auto) 1.9 % (0.0-12.0); Neutrophils # (auto) 10.3 10 ^3/uL (1.6-8.6); Neutrophils % (auto) 91.3 % (37.0-80.0); Platelet Count (auto) 268 10^3/uL (140-450); Red Blood Cells 3.66 10^6/uL (4.5-5.90); Red Cell Distribution Width 14.1 % (11.8-14.3); White Blood Cell 11.3 10^3/uL (4.4-10.8)
[2020-04-11 09:09] LABS: Calcium 7.5 mg/dL (8.5-10.1); Potassium 3.6 mmol/L (3.5-5.1)
[2020-04-11 09:11] LABS: BUN/Creatinine Ratio 17.9; Bilirubin, Total 0.9 mg/dL (0.2-1.0); Phosphorus 1.8 mg/dL (2.5-4.90); Total Protein 5.6 g/dL (6.4-8.2)
[2020-04-11] MEDS ORDERED: SODIUM PHOSPHATES 20 MEQ in SODIUM CHL 0.9% 100 ML IV ONE (09:30)
[2020-04-11] MEDS: Sitagliptin Phosphate (Januvia) 100 MG TAB PO SCH (09:59)
[2020-04-11] MEDS: CLOPIDOGREL BISULFATE 75 MG TAB PO SCH (10:00)
[2020-04-11] MEDS: APIXABAN 2.5 MG TAB PO SCH ×2 (10:00→21:46)
[2020-04-11] MEDS: PANTOPRAZOLE 40 MG TAB PO SCH (10:00)
[2020-04-11] MEDS: LISINOPRIL 20 MG TAB PO SCH ×2 (10:01→21:52)
[2020-04-11] MEDS: METOPROLOL TARTRATE 50 MG TAB PO SCH ×2 (10:01→21:51)
--- NOTE | 2020-04-11 10:24 | NUR ---
WOUND CARE NOTE: Patient is resting in bed in Rm 279B. Wound care in to assess patient's sacral, back, heels bony prominences. Skin assessment done with the assistance of patient's bedside nurse, LINETTE Molina. Patient's Rt and Lt sacral buttocks has dark maroon pressure injury measuring [id number]. t Sacral/buttock pressure injury is consistent with DTI (Deep Tissue Injury). Photograph of patient's sacral/buttock pressure injury are taken for reference. Dorcas care given, applied Z Guard cream and covered sacrum with Opti foam sacral dressing. Patient's Rt forehead and bilateral forearm skin tear has C/D/I dressing. Patient is max assist in turning and repositioning, he will benefit with air mattress. Repositioned patient for comfort facing his Rt side, redistributed pressure points with pillows. Patient tolerated well. LINETTE Molina at bedside. RECOMMENDATION: Continuation of all wound care orders MD prescribed, air mattress (ordered), side to side positioning (only if possible in exception with PT activity and during meal time), do not massage sacral dark maroon area, continue monitoring by wound care while patient is hospitalized. Addendum: 04/11/20 at 1654 by Sunshine Dean RN Amended: Links added.
--- NOTE | 2020-04-11 10:25 | NUR ---
Wound care nurse at bed side to see, pictures taken, applied z-guard to sacrum, cover with opti-foam dressing.
[2020-04-11 12:00] VITALS: BP 120/51
--- NOTE | 2020-04-11 12:01 | NUR ---
AIR MATTRESS: Air mattress ordered at [facility]. DIONI 04/11/20 @ 1758 Reference #[id number]. Please call Reynaldo Donovan at if needed to follow up. Addendum: 04/11/20 at 1202 by Sunshine Dean RN Amended: Links added.
--- NOTE | 2020-04-11 15:40 | NUR ---
Dr. Moss at unit to see pt, doctor informed that pt had PT bid, pt was total assist on both time, pt is using 6 lit via n/c for O2 and O2 sat at 90%, pt has cough, and that pt's son Tam is reporting that pt's son Cristóbal will not be able to care for pt.
[2020-04-11 16:57] VITALS: BP 142/68
[2020-04-11] MEDS: IPRATROPIUM BROM 0.5 MG/2.5ML INH SOL NEB SCH ×2 (18:40→22:52)
[2020-04-11] MEDS: ALBUTEROL SULF 2.5 MG/0.5ML(0.5%) NEB SOLN NEB SCH ×2 (18:40→22:52)
--- NOTE | 2020-04-11 18:40 | NUR ---
Respiratory note: AT BEDSIDE FOR MED NEB TX. RN Clarence WILLETT, AT BEDSIDE SHE COMMUNICATED THAT SHE HAS A CONCERN WITH PTS O2 CONSUMPTION. PER RN PT HAS BEEN IN 6LPM FOR THE MAJORITY OF HER SHIFT AND PTS SPO2 HAS BEEN AT ITS HIGHEST AT 91%. PT ASSESSED POX 88-90% ON 6LPM AT THIS TIME, MED NEB TX GIVEN WITHOUT ADVERSE REACTION NOTED. BS ARE COURSE T/O WITH FINE CRACKLES HEARD IN BILATERAL BASES. INSTRUCTED PT TO GIVE A GOOD EFFORT COUGH. PTS BEST EFFORT IS WEAK AND UNABLE TO EXPECTORATE ANY THING AT THIS TIME. SATS CAME UP TO 91-93% POST MED NEB TX. RN AWARE OF PT FINDINGS. WILL CONTINUE TO CLOSELY MONITOR.
[2020-04-11] MEDS: ATORVASTATIN 20 MG TAB PO SCH (21:47)
[2020-04-11 22:00] VITALS: BP 102/53
--- NOTE | 2020-04-11 23:00 | NUR ---
AT BEDSIDE FOR MED NEB TX. PRE TX PT POX AT 85-86% ON 6LPM NC, PLACED PT ON MED NEB TX. SATS CAME UP TO 90-91% DURING AND POST TX. WILL REASSESS POX POST TX, AND COMMUNICATE FINDINGS TO ASSIGNED RN.
--- NOTE | 2020-04-11 23:26 | NUR ---
Attempted multiple times to pg Dr. Moss regarding pts o2 consumption. Unable to get a send pg out. PBX transfers to Dr. Dowling and Dr. Clarence Deleon exchange and unable to leave msgs at these numbers. Will pg hospitalist for ABG orders. LINETTE Mccoy aware of attempts.
--- NOTE | 2020-04-11 23:32 | NUR ---
Respiratory note: Hospitalist paged at this time.
[2020-04-12] VITALS (57 sets, daily range): BP systolic 74–137; BP diastolic 37–80
--- NOTE | 2020-04-12 00:10 | NUR ---
Respiratory note: PLACED PT ON 8LPM OXYMIZER SAT 90-93%. COMMUNICATED O2 CHANGE TO LINETTE GRIMM.
--- NOTE | 2020-04-12 00:20 | NUR ---
ABG RESULTS REPORTED TO HOSPITALIST Delvis LEUNG. ORDERS RECEIVED TO SWAB FOR COVID DUE TO PTS PRESENTATION. WILL COMMUNICATE TO CATERING ADMINISTRATIVE ASSISTANT.
--- NOTE | 2020-04-12 00:30 | NUR ---
COMMUNICATED VERBAL ORDERS I OBTAINED FROM HOSPITALIST TO COMPUTER NETWORKING INSTRUCTOR LAUREN, ORDERS TO SWAB PT FOR COVID, AND ABG OBTAINED.
[2020-04-12] MEDS: ALBUTEROL SULF 2.5 MG/0.5ML(0.5%) NEB SOLN NEB SCH ×3 (02:00→22:35)
[2020-04-12] MEDS: IPRATROPIUM BROM 0.5 MG/2.5ML INH SOL NEB SCH ×3 (02:00→22:35)
--- NOTE | 2020-04-12 02:00 | NUR ---
0200 med [facility] has been held due to covid r/o precautions.
[2020-04-12] MEDS: amLODIPine BESYLATE 5 MG TAB PO SCH ×3 (05:21→21:58)
[2020-04-12] MEDS: ACETAMINOPHEN 325 MG TAB PO PRN (05:22)
--- NOTE | 2020-04-12 06:15 | NUR ---
04/11 1900 Received pt from Tracy SUE. Pt resting comfortably in bed. Call calix within reach. Will continue to hourly round. 2229 Pt switched over to specialty air mattress. 04/12 0130 Pt swabbed for COVID and test walked down to Lab with Dieudonne SUE. 2663 Report endorsed to Yandy Burns RN, for COVID r/o symptoms. Pt's cell phone & belongings tab transferred over with patient.
--- NOTE | 2020-04-12 06:35 | NUR ---
Patient Transferred to [facility]- Unit Received report from Nadine SUE from [facility]. Patient is alert and oriented x 3, patient reoriented to person, place, time, and situation, will continue to reorient patient as needed and throughout shift. Patient switched over from Oxymizer to nonrebreather due to low oxygen saturation. Patient now on 13L/min nonrebreather, SPO2:94% at this time. Patient on continuous telemetry monitoring, tele box # 4 with heart rate in the 150s. Patient denies pain or shortness of breath at this time. No sign/symptoms of distress noted or verbalized at this time. Instructed on plan of care and encouraged patient to call for assistance as needed, patient verbalized understanding. Bed is locked in lowest position, side rails x 2 are up, call light is within reach, and bed alarm is on.
--- NOTE | 2020-04-12 07:05 | NUR ---
EKG Performed EKG performed due to heart rate sustaining between 130s-150s. EKG reads "Atrial fibrillation with rapid v-rate" heart rate 155. Will notify
--- NOTE | 2020-04-12 07:15 | NUR ---
Dr. Ajay Morales RE: Atrial Fibrillation Dr. Ajay morales regarding patient converting from sinus rhythm to atrial fibrillation with RVR. Awaiting call back.
--- NOTE | 2020-04-12 07:25 | NUR ---
Closing Shift Note Patient is laying in bed with even and unlabored respirations. Patient care endorsed to Capri SUE. Capri RN aware that this RN paged Dr. Moss regarding atrial fibrillation with RVR and Dr. Moss has not returned call.
[2020-04-12 07:27] LABS: Basophils # (auto) 0 10 ^3/uL (0-0.2); Basophils % (auto) 0.1 % (0.0-2.0); Eosinophils # (auto) 0 10 ^3/uL (0-0.8); Hematocrit 30.5 % (41.0-53.0); Hemoglobin 10.1 g/dL (13.5-17.5); Lymphocytes # (auto) 0.5 10 ^3/uL (0.4-5.4); Lymphocytes % (auto) 5.5 % (10.0-50.0); Mean Corpuscular Hemoglobin 30.9 pg (28.0-32.0); Mean Corpuscular Volume 93.5 fL (80.0-100.0); Monocytes # (auto) 0.3 10 ^3/uL (0-1.3); Monocytes % (auto) 3.3 % (0.0-12.0); Neutrophils # (auto) 7.9 10 ^3/uL (1.6-8.6); Neutrophils % (auto) 91.1 % (37.0-80.0); Nucleated Red Blood Cells % 0.1 %; Platelet Count (auto) 250 10^3/uL (140-450); Red Blood Cells 3.26 10^6/uL (4.5-5.90); White Blood Cell 8.7 10^3/uL (4.4-10.8)
[2020-04-12] MEDS ORDERED: AMIODARONE 450mg/250ml AE 250 ML IV SCH ×2 (07:44→13:44)
[2020-04-12 07:45] LABS: Albumin 1.7 g/dL (3.4-5.0); Potassium 3.6 mmol/L (3.5-5.1)
[2020-04-12] MEDS ORDERED: AMIODARONE HCL 150 MG in D5W 5% 100 ML IV ONE ×2 (07:45→14:30)
--- NOTE | 2020-04-12 07:45 | NUR ---
SPOKE TO DR PERLA ORDERS FOR AMIODARONE DRIP. PATIENT IN A FIB RVR
[2020-04-12 07:46] LABS: BUN/Creatinine Ratio 22.7
[2020-04-12] MEDS: SOD CHL 0.45% 1,000 ML IV SCH (07:47)
[2020-04-12 07:50] LABS: Phosphorus 2.6 mg/dL (2.5-4.90); Total Protein 5.2 g/dL (6.4-8.2)
--- NOTE | 2020-04-12 07:50 | NUR ---
Covid-19 Payton Test Covid-19 payton test collected and walked to lab.
--- NOTE | 2020-04-12 08:09 | NUR ---
UNABLE TO START AMIODARONE DRIP BP74/[address] HE[address] RATE [address] PERLA FOR FURTHER ORDERS. MARCIA CHARGE NURSE AWARE.
--- NOTE | 2020-04-12 08:14 | NUR ---
ORDERS TO START 500 ML FLUID BOLUS
[2020-04-12] MEDS ORDERED: SOD CHL 0.45% 1,000 ML IV ONE (08:15)
--- NOTE | 2020-04-12 09:00 | NUR ---
SPOKE TO SON NATALIE HE SAID HIS DAD IS DNR BUT HE DOES NOT HAVE THE PAPER WORK. I WILL NOTIFY DR PERLA AND HE CAN DISCUSS IT WITH THE PATIENT.
--- NOTE | 2020-04-12 09:21 | NUR ---
DR OROZCO AT BEDSIDE ORDER FOR BI PAP AND TRANSFER TO ICU.
--- NOTE | 2020-04-12 09:28 | NUR ---
CHEST X BEING DONE. RT AT BEDSIDE FOR BIPAP. BED ASSIGNMENT TO ICU BED 111.
--- NOTE | 2020-04-12 09:45 | NUR ---
PLACED PT ON BIPAP PER DR. OROZCO'S ORDERS DUE TO INCREASED WOB AND O2 DESAT ON NRBM MASK. PT IS ON BIPAP VISION B4 PLUGGED INTO RED OUTLET, FITTED WITH SIZE MEDIUM FACIAL MASK. ON SETTINGS: 08/03, , FIO2 75%. PT CONNECTED TO [employer] BEDSIDE PULSE OX MONITOR. ALARMS SET AND AUDIBLE. NOTIFIED RN OF CHANGES. PT RESTING IN BED, TOLERATING BIPAP WELL. BREATH SOUNDS DIM T/O. ABG TO FOLLOW. HR 144, RR 32, SPO2 96%. WILL CONTINUE TO MONITOR.
--- NOTE | 2020-04-12 09:50 | NUR ---
Assumed care of pt., report received per LINETTE Farooq. Noted laboring, pt. refusing intubation, placed on BiPAP, will cont.to monitor for effectiveness, noted A-fib /c RVR on monitor, aware, will cont.to monitor for any changes, assessment ongoing.
[2020-04-12] MEDS: LISINOPRIL 20 MG TAB PO SCH ×2 (10:00→21:59)
[2020-04-12] MEDS ORDERED: BUDESONIDE (INHALATION) 180 MCG IH IN SCH (10:00)
--- NOTE | 2020-04-12 10:00 | NUR ---
TRANSFERRED TO ICU BED 111. RT AT BEDSIDE.
--- NOTE | 2020-04-12 10:14 | NUR ---
RT Transport Note: Patient transported to ICU 111 with RN. Patient transported on cardiac rehabilitation specialist with alarms set and audible, NRB mask connected to 02 tank. After arrival, placed pt back on BIPAP previous settings, titrated FIO2 to 65%. SPO2 96%. Transport completed without incident. Relayed report to RT Kaylynn.
--- NOTE | 2020-04-12 10:15 | NUR ---
Pt UPGRADED TO ICU, NO PT tx TODAY. Pt WILL REQUIRE NEW ORDER TO RESUME PT tx. Addendum: 04/12/20 at 1102 by Anselmo Hilario WAITER/WAITRESS SECOND CLASS Amended: Links added.
[2020-04-12] MEDS: APIXABAN 2.5 MG TAB PO SCH ×2 (10:52→22:00)
[2020-04-12] MEDS: PANTOPRAZOLE 40 MG TAB PO SCH (10:52)
[2020-04-12] MEDS: CLOPIDOGREL BISULFATE 75 MG TAB PO SCH (10:52)
[2020-04-12] MEDS: levoFLOXacin 500MG 100 ML IV SCH ×2 (10:52→10:56)
[2020-04-12] MEDS: Sitagliptin Phosphate (Januvia) 100 MG TAB PO SCH (10:54)
[2020-04-12] MEDS: METOPROLOL TARTRATE 50 MG TAB PO SCH ×2 (10:55→21:58)
[2020-04-12] MEDS: NOREPINEPHRINE 8 MG/250ML KIT 250 ML IV SCH (10:58)
[2020-04-12] MEDS ORDERED: ASCORBIC ACID 500 MG TAB PO SCH (11:00)
[2020-04-12 11:29] LABS: INR 1.08 (0.9-1.15); Partial Thromboplastin Time 34.4 sec (23.0-31.2)
[2020-04-12] MEDS ORDERED: SODIUM BICARBONATE 8.4 % INJ 50ML VIAL IV ONE (12:00)
--- NOTE | 2020-04-12 12:00 | NUR ---
pt. in need of definitive IV access, MD Lara present and will place central line, will cont.to monitor for any changes, assessment ongoing.
[2020-04-12] MEDS: ZINC SULFATE 220mg CAP or TAB PO SCH (12:28)
[2020-04-12] MEDS: CHOLECALCIFEROL (VITD3) 2,000 UNIT CAP PO SCH (12:29)
[2020-04-12] MEDS: DOXYCYCLINE 100MG/250ML 250 ML IV SCH ×2 (12:30→22:49)
[2020-04-12 12:52] LABS: CRP High Sensitivity 8.41 mg/dL (< 0.3)
[2020-04-12] MEDS ORDERED: DIGOXIN (250MCG/ML) 2 ML AMPULE IV ONE (13:30)
--- NOTE | 2020-04-12 13:30 | NUR ---
Dr. Lara read PCXR and noted central line in place, ok to use per MD, will cont.to monitor for any changes, assessment ongoing.
[2020-04-12] MEDS: FUROSEMIDE 40 MG/4 ML VIAL IV SCH (14:00)
[2020-04-12] MEDS ORDERED: ALBUTEROL SULF HFA 90MCG INH 200DOSE IN SCH (14:00)
--- NOTE | 2020-04-12 14:00 | NUR ---
noted cont. a-fib /c RVR dispite efforts, Dr. Monteiro notified, new orders received, will cont.to monitor for any change, assessment ongoing.
--- NOTE | 2020-04-12 16:23 | NUR ---
Assessment Patient is a 89-year-old male. Assessment was completed with patient son Clara who lives in [place] ). Per Clara Prior to admission patient lived home with Cristóbal and functioned independently. Per Clara patient has a walker and cane for home use. Per Clara prior to admission patient was able to care for his own ADLs. Per Clara patient was having difficulty breathing and was brought to the hospital. Advised Clara there is a social service consult for SNF placement. Informed Clara clinical information will be faxed to contracted facilities with health plan. Informed Clara he has the right to participate in all discharge planning. Clara verbalized understanding. Per LINETTE Farooq patient is not stable to discharge at this time. Faxed clinical information to [facility]. Per Maria Eugenia with [facility] patient has been accepted. Informed Maria Eugenia patient is not stable at this time and will follow up with her once patient is ready to discharge. Addendum: 04/12/20 at 1636 by SLY PEREZ Amended: Links added.
--- NOTE | 2020-04-12 16:30 | NUR ---
noted cont. A-fib /c RVR 150's MD Monteiro notified, no new orders received, will cont.to monitor for any changes, assessment ongoing.
[2020-04-12] MEDS: AMIODARONE 450mg/250ml AE 250 ML IV SCH ×2 (16:45→21:59)
--- NOTE | 2020-04-12 17:00 | NUR ---
No distress noted, pt. cont.to have high HR 140's, MD aware, will cont.to monitor for any changes, pt. tolerating BiPAP, assessment ongoing.
[2020-04-12] MEDS ORDERED: REMDESIVIR 200 MG in NS 210ml LOADING DOSE ADULT IV ONE (18:00)
--- NOTE | 2020-04-12 18:00 | NUR ---
No distress noted, pt. turned and cares performed, VSS on Levophed, will cont.to monitor for any changes. assessment ongoing.
--- NOTE | 2020-04-12 18:38 | NUR ---
Respiratory note: RECEIVED PT ON BIPAP ([id number]).BIPAP CONNECTED TO RED OUTLET AND O2 SOURCE ALARMS ARE SET AND AUDIBLE. AMBU BAG AND MASK AT BEDSIDE. BIPAP CHECK DONE FROM PTS ROOM DOOR DUE TO COVID PRECAUTIONS. NO CHANGES MADE WILL CONTINUE TO MONITOR
--- NOTE | 2020-04-12 19:00 | NUR ---
No distress noted, pt. report given to LINETTE Zavaleta. Care of pt. assumed per NOC RN, day shift RN relinquished care and signed off.
[2020-04-12] MEDS: POTASSIUM CHL 20MEQ/100ML 100 ML IV SCH ×2 (19:15→21:15)
--- NOTE | 2020-04-12 19:59 | NUR ---
ADMITTED WITH GENERALIZED WEAKNESS, DYSPNEA. FELL LAST ON MARCH 29 SUFFERING A FRACTURE THAT LED TO A SURGERY BY DR SMART. LEFT DVH ON Mar. PATIENT IS A DNI. WOUND CARE SEEING THE PATIENT. HAS AN ABRASION ON HIS RIGHT FOREHEAD. LARGE DTI ON COCCYX AREA. ECCHYMOTIC LEFT SHOULDER (FALL/SURGERY). NEW LEFT IJ TLC STARTED TODAY BY DR ROBISON. CXR POST INSERTION. FIRST DOSE OF REMDESIVIR ENDING. PLAN FOR 4 DAYS OF MEDICATION. ORDER IN FOR CONVALESCENT PLASMA. ON FLOOR HE DECOMPENSATED. ON LEVOPHED AND AMIODARONE FOR AFIB RVR. HR IS NOW 142-150 . AWARE. ALERT.RUKHSANA. ROMERO. GARBLED SPEECH. ON BIPAP. 08/03 WITH BUR OF 12. FIO2 65%
--- NOTE | 2020-04-12 20:00 | NUR ---
FEVER 100
--- NOTE | 2020-04-12 20:15 | NUR ---
PLACED A CALL TO NATALIE, LEFT A MESSAGE TO HAVE HIM CALL US BACK. DR OROZCO WOULD LIKE THE PATIENT TO HAVE CONVALESCENT PLASMA. I NEED TO KNOW IF DR OROZCO HAS SPOKE WITH HIM ABOUT WHAT IT IS AND IF HE AGREES TO IT, WE DO NEED CONSENT
--- NOTE | 2020-04-12 21:00 | NUR ---
PATIENT IS THIRSTY. REPOSITIONED TO BACK. URINE CLEAR GISELLA. GARBLED SPEECH. COMMUNICATING THROUGH HAND SIGNS.
[2020-04-12] MEDS: ATORVASTATIN 20 MG TAB PO SCH (21:57)
[2020-04-12] MEDS: ASCORBIC ACID 1,000 MG TAB PO SCH (21:59)
[2020-04-12] MEDS ORDERED: PATIENTS OWN MEDICATION (PULMICORT 360 MCG) IN SCH (22:00)
--- NOTE | 2020-04-12 22:30 | NUR ---
GAVE HIM HIS MEDS USING APPLESAUCE. COUGHED WITH WATER. THE METOPROLOL BROUGHT DOWN HIS HR INTO THE 80S FOR AWHILE. ALWAYS ATRIAL FIB WITH OCCASIONAL VENTRICULAR ABERRANCIES.
[2020-04-12] MEDS: BUDESONIDE (INHALATION) 0.5 MG/2 ML NEB NEB SCH (22:35)
--- NOTE | 2020-04-12 22:35 | NUR ---
Respiratory note: AT BEDSIDE IN FULL PPE, DUE TO COVID PRECAUTIONS. RN HAO AT BEDSIDE PERFORMING CARES. AEROGEN PLACED INLINE NEBULIZED TXS WILL BEGIN AGAIN, DUE TO PTS LIMITED INHALED AND COORDINATED EFFORTS TO MDI AND DPI TXS. BS ARE COURSE T/O. MED NEB TX GIVEN VIA AEROGEN NO ADVERSE REACTION NOTED.
[2020-04-13] VITALS (67 sets, daily range): BP systolic 91–149; BP diastolic 38–95
--- NOTE | 2020-04-13 00:30 | NUR ---
CENTRAL LINE DRESSING HAS BEEN BLOODY. REMOVED. THE SITE NEAR THE LEFT SUTURE IS OOZING. HELD PRESSURE FOR 5 MINUTES. IT POSITIONALLY WOULD OOZE BLOOD. SNOW APPLIED WITH A CLEAR DRESSING OVER IT. LEFT FOREARM SKIN TEAR: OPEN AREAS WITH A LARGE BLISTER. CLEANED AREA WITH ANTIBACTERIAL CLEANSER AND NEW FOAM DRESSING APPLIED. SAME WITH THE RIGHT FOREARM , THERE IS ALSO A SMALL OPEN AREA WITH A LARGE BLISTER. AREA CLEANED WITH AN ANTIBACTERIAL SOLUTION. COVERED WITH A NEW FOAM DRESSING. REPOSITIONED. GAVE HIM SOME APPLESAUCE AND WATER. TEMP IS NORMAL.
--- NOTE | 2020-04-13 02:00 | NUR ---
RT PLACED A BIPAP FACE SHIELD MASK ON, REPLACING THE SMALL MASK. HE LIKES IT BETTER.
--- NOTE | 2020-04-13 02:40 | NUR ---
Respiratory note: AT BEDSIDE IN FULL PPE, DUE TO COVID PRECAUTIONS. CHANGED MASK INTERFACE DUE TO REDNESS APPEARANCE ON BRIDGE OF NOSE. GAVE PT A BREAK FROM PRESSURE RELIEF FROM FFM. PLACED ON (L) TOTAL FACE MASK. PT STATED THIS IS A BETTER OPTION. PT APPEARS MORE COMFORTABLE. COMMUNICATED CHANGE TO RN HAO AND RT LEAD GINA Gibbons WILL CONTINUE TO MONITOR
--- NOTE | 2020-04-13 02:59 | NUR ---
REMAINS IN ATRIAL FIB. RATE GOES UP AND DOWN. CURRENTLY 124.
--- NOTE | 2020-04-13 04:30 | NUR ---
LEFT ARM SKIN TEAR WOUND LEAKED A LARGE AMOUNT ONTO THE GOWN AND BED. CLEANED WOUND. PUT HONEY ON A FOAM DRESSING. AND DID A FULL BED CHANGE.
[2020-04-13 04:55] LABS: Basophils # (auto) 0 10 ^3/uL (0-0.2); Basophils % (auto) 0.1 % (0.0-2.0); Eosinophils # (auto) 0 10 ^3/uL (0-0.8); Hematocrit 31.5 % (41.0-53.0); Hemoglobin 10.5 g/dL (13.5-17.5); Lymphocytes # (auto) 0.6 10 ^3/uL (0.4-5.4); Lymphocytes % (auto) 7.2 % (10.0-50.0); Mean Corpuscular Hemoglobin 30.9 pg (28.0-32.0); Mean Corpuscular Hgb Conc. 33.3 g/dL (32.0-36.0); Mean Corpuscular Volume 92.9 fL (80.0-100.0); Monocytes # (auto) 0.3 10 ^3/uL (0-1.3); Neutrophils # (auto) 7.8 10 ^3/uL (1.6-8.6); Neutrophils % (auto) 89.7 % (37.0-80.0); Nucleated Red Blood Cells % 0.1 %; Platelet Count (auto) 284 10^3/uL (140-450); Red Blood Cells 3.39 10^6/uL (4.5-5.90); Red Cell Distribution Width 13.8 % (11.8-14.3); White Blood Cell 8.7 10^3/uL (4.4-10.8)
[2020-04-13 05:15] LABS: BUN/Creatinine Ratio 17.9; Calcium 7.3 mg/dL (8.5-10.1); Magnesium 1.8 mg/dL (1.6-2.6); Potassium 3.8 mmol/L (3.5-5.1)
[2020-04-13] MEDS: AMIODARONE 450mg/250ml AE 250 ML IV SCH ×3 (05:45→16:15)
[2020-04-13] MEDS: amLODIPine BESYLATE 5 MG TAB PO SCH ×3 (06:00→21:41)
[2020-04-13] MEDS: NOREPINEPHRINE 8 MG/250ML KIT 250 ML IV SCH (06:00)
--- NOTE | 2020-04-13 06:48 | NUR ---
SPOKE WITH NATALIE, HIS SON. HE IS IN FAVOR OF CONVALESCENT PLASMA. CONSENT PAPERWORK IN FRONT OF CHART.
--- NOTE | 2020-04-13 07:30 | NUR ---
Assumed care of pt., report received per LINETTE Zavaleta. No distress noted, pt. on BiPAP and tolerating setting, pt. reading Atrial Fibrillation on monitor /c controlled rate and asymptomatic, will cont.to monitor for any changes, call calxi in reach, assessment ongoing.
--- NOTE | 2020-04-13 08:00 | NUR ---
No distress noted, pt. resting in bed, tolerating BiPAP, will cont.to monitor for any changes, call calix in reach, assessment ongoing.
[2020-04-13] MEDS: AZITHROMYCIN 500MG/ 250ML 250 ML IV SCH (09:08)
[2020-04-13] MEDS: MORPHINE SULF INJ 2 MG/ML SYRINGE 1ML IV PRN ×3 (09:11→18:42)
[2020-04-13] MEDS: ASCORBIC ACID 1,000 MG TAB PO SCH ×2 (09:11→21:41)
[2020-04-13] MEDS: ZINC SULFATE 220mg CAP or TAB PO SCH (09:12)
[2020-04-13] MEDS: CHOLECALCIFEROL (VITD3) 2,000 UNIT CAP PO SCH (09:12)
[2020-04-13] MEDS: HYDROcodone-ACET 5/325MG TAB PO PRN (09:12)
[2020-04-13] MEDS: CLOPIDOGREL BISULFATE 75 MG TAB PO SCH (09:12)
[2020-04-13] MEDS: METOPROLOL TARTRATE 50 MG TAB PO SCH ×2 (09:13→21:40)
[2020-04-13] MEDS: PANTOPRAZOLE 40 MG TAB PO SCH (09:13)
[2020-04-13] MEDS: APIXABAN 2.5 MG TAB PO SCH ×2 (09:13→21:39)
[2020-04-13] MEDS: FUROSEMIDE 40 MG/4 ML VIAL IV SCH (09:13)
[2020-04-13] MEDS: Sitagliptin Phosphate (Januvia) 100 MG TAB PO SCH (09:14)
[2020-04-13] MEDS: LISINOPRIL 20 MG TAB PO SCH ×2 (09:15→22:00)
[2020-04-13] MEDS: IPRATROPIUM BROM 0.5 MG/2.5ML INH SOL NEB SCH ×3 (10:18→22:17)
[2020-04-13] MEDS: ALBUTEROL SULF 2.5 MG/0.5ML(0.5%) NEB SOLN NEB SCH ×3 (10:19→22:16)
[2020-04-13] MEDS: BUDESONIDE (INHALATION) 0.5 MG/2 ML NEB NEB SCH ×2 (10:19→22:17)
--- NOTE | 2020-04-13 10:30 | NUR ---
MED NEB GIVEN VIA AEROGEN ON BIPAP. PT TAKEN OFF BIPAP POST MED NEB AND PLACED ON 15L NRB SPO2 93%. RN MADE AWARE. WILL CONTINUE TO MONITOR PT.
--- NOTE | 2020-04-13 12:30 | NUR ---
Noted sustained bradycardia, Dr. Monteiro notified, new orders received, will implement and cont.to monitor for effectiveness, assessment ongoing.
[2020-04-13] MEDS: DOXYCYCLINE 100MG/250ML 250 ML IV SCH ×2 (12:55→23:05)
--- NOTE | 2020-04-13 13:15 | NUR ---
PT PLACED ON NRB MASK DUE TO PT NOT BEING COMPLIANT WITH BIPAP. RT HAD TO GO IN ROOM 4 TIMES TO PLACED PT BACK ON BIPAP MASK. PT KEEPS REFUSING. RN MADE AWARE. DR. OROZCO MADE AWARE VIA TELEPHONE. PT ON NRB WITH S PO2 93%, HR 61, RR 18. WILL CONTINUE TO MONITOR PT.
[2020-04-13] MEDS: ONDANSETRON HCL 4 MG/2 ML VIAL IV PRN ×2 (13:27→18:42)
[2020-04-13] MEDS ORDERED: AMIODARONE 450mg/250ml AE 250 ML IV SCH (13:30)
--- NOTE | 2020-04-13 13:33 | NUR ---
Nutrition Followup Notes Pt wt is 72.0 kg Pt is positive for COVID. Pt was awake, on BiPAP with no relatives at bedside when rounded this morning. Pt is with a CCHO 60g diet appetite is good aeb ave 75% PO intake per RN doc. Pt with no distress per RN doc. Will continue to monitor PO status, skin status, pertinent labs and weight trends. Will f/u in 3-5 days. Est energy needs BW 68 [id number] kcal (25-30 kcal/kg BW), Est protein needs: 68-88 g (1.0-1.3g/kg BW r/t wounds hypoalb) Will reassess prn. LABS: Gluc 231 H, Ca 7.3 H, Alb 1.7 L GI: Pt with a daily BM per RN doc. BS: 14 mod risk. Refer to wound assessment report for full details. PES: 1) Altered nutrition related lab values r.t current chronic medical condition aeb elev BUN severe hypoalb 2) Increased nutrient needs r/t chronic medical condition aeb pt`s with wounds severe hypoalb poor PO Comments 1) consider glucerna 1 carton bid 2) consider MVI/C bid 3) refer to CDE on DC 4) consider soft diet along with current diet 5) continue assistance with meals 6) continue current plan f care
[2020-04-13] MEDS: REMDESIVIR 100mg in NS 230ml DAILYx4DAYS (NO VENT) IV SCH (17:34)
--- NOTE | 2020-04-13 19:18 | NUR ---
No distress noted, pt. report given to LINETTE Zavaleta. Care of pt. assumed per NOC RN, day shift RN relinquished care and signed off.
--- NOTE | 2020-04-13 19:49 | NUR ---
ADMITTED WITH GENERALIZED WEAKNESS, DYSPNEA. FELL LAST ON MARCH 29 SUFFERING A FRACTURE THAT LED TO A SURGERY BY DR SMART. LEFT DVH ON Mar. PATIENT IS A DNI. WOUND CARE SEEING THE PATIENT. HAS AN ABRASION ON HIS RIGHT FOREHEAD. LARGE DTI ON COCCYX AREA. PARTIALLY OPEN. ECCHYMOTIC LEFT SHOULDER (FALL/SURGERY).SEVERAL TINY INCISIONS THAT ARE STAPLED. NEW LEFT IJ TLC STARTED TODAY BY DR ROBISON YESTERDAY. SMALL AMOUNT OF BLEEDING AT SITE. second DOSE OF REMDESIVIR ENDING. PLAN FOR 4 DAYS OF MEDICATION. ORDER IN FOR CONVALESCENT PLASMA. ON FLOOR HE DECOMPENSATED. ON AMIODARONE FOR AFIB RVR. HR IS NOW 60. MD AWARE. AMIODARONE DRIP DOSE DECREASED TODAY. ALERT.MILIAN. ROMERO. GARBLED SPEECH. ON 100%NRB. CALM. RECEIVED A DOSE OF MORPHINE AROUND 1800. BILATERAL MITTENS ON. O2 SAT 93%
--- NOTE | 2020-04-13 20:00 | NUR ---
REPOSITIONED TO BACK. QUIET. OPENS EYES. QUIET UNLESS YOU MOVE THE LEFT ARM. THE TOP OF THE LEFT SHOULDER HAS 3 TINY INCISIONS THAT ARE SUTURED, DRY, NO REDNESS. OPEN TO AIR. WHOLE LEFT SHOULDER IS ECCHYMOTIC AND TENDER. LEFT IJ TLC HAS SNOW AT ITS BASE WITH A CLEAR DRESSING OVER IT. OLD BLOOD DRNG AT SITE. ABDOMEN SOFT. TOLERATING THE NRB WELL. O2 SAT HAS BEEN 90-92%. LUNGS BILATERALLY DIMINISHED. NO BM. LAZO IN PLACE DRAINING CLEAR YELLOW LIQUID TO DOWN DRAIN BAG. ALL PULSES PALPABLE. ALL EXTREMITIES ARE WARM. BILATERAL MITTENS. NSR 62-64. NO ECTOPY. SBP STABLE OFF OF LEVOPHED.
[2020-04-13] MEDS: ATORVASTATIN 20 MG TAB PO SCH (21:39)
--- NOTE | 2020-04-13 21:41 | NUR ---
JUST CAME OFF OF LEVOPHED TODAY. SYSTOLIC 128. HOLDING BP MEDS FOR NOW.
--- NOTE | 2020-04-13 22:00 | NUR ---
RESPIRATORY TREATMENT DONE WITH BIPAP MACHINE
[2020-04-14] VITALS (92 sets, daily range): BP systolic 96–143; BP diastolic 43–66
--- NOTE | 2020-04-14 | NUR ---
MOANING A LOT. PAIN MED GIVEN. VSS. CONTINUES ON 15LNRB MASK. AMIODARONE HOLDING THE HR AT 65 SINUS RHYTHM.
[2020-04-14] MEDS: AMIODARONE 450mg/250ml AE 250 ML IV SCH ×2 (00:01→14:28)
[2020-04-14] MEDS: MORPHINE SULF INJ 2 MG/ML SYRINGE 1ML IV PRN ×3 (00:15→22:45)
--- NOTE | 2020-04-14 02:00 | NUR ---
CHG BATH. LEFT SHOULDER/CHEST IS ECCHYMOTIC. 3 SMALL STITCHED AREAS FROM A PREVIOUS SURGERY ARE CLEAN, SCABBED AND DRY. CENTRAL LINE YESTERDAY OOZED FROM A STITCH SITE. SNOW WAS APPLIED. TODAY I REMOVED IT AND THERE WAS NO BLEEDING. SITE CLEANED, DRIED, BIOPATCH APPLIED AND COVERED SITE WITH A CLEAR DRESSING. RIGHT FOREARM SKIN TEAR: SOAKED FOAM DRESSING REMOVED. SITE CLEANED WITH WOUND SPRAY. THERAHONEY FOAM DRESSING APPLIED. THE BLISTER THAT WAS THERE IS NO LONGER. RIGHT FOREARM SKIN TEAR DRESSING REMOVED. SMALL AMOUNT OF SEROUS DRNG. SITE CLEANED WITH WOUND CLEANSER AND REDRESSED WITH A THERAHONEY FOAM DRESSING. BUTTOCKS FOAM DRESSING SHOWS A SMALL AMOUNT OF SEROUS DRNG.
--- NOTE | 2020-04-14 04:00 | NUR ---
AM LABS DRAWN. PATIENT ASSESSED. HE IS QUIET, COMFORTABLE. NO DRNG FROM THE CENTRAL LINE DRESSING. VSS. NSR WITHOUT ECTOPY. HR HAS VARIED TONIGHT. 64-84. 15L NRB MASK. PATIENT IS A DNI.
[2020-04-14 05:23] LABS: CRP High Sensitivity 8.76 mg/dL (< 0.3)
[2020-04-14] MEDS: amLODIPine BESYLATE 5 MG TAB PO SCH ×3 (06:00→22:00)
--- NOTE | 2020-04-14 06:46 | NUR ---
[facility], RECENTLY OFF LEVOPHED
[2020-04-14] MEDS: IPRATROPIUM BROM 0.5 MG/2.5ML INH SOL NEB SCH ×3 (06:55→21:57)
[2020-04-14] MEDS: ALBUTEROL SULF 2.5 MG/0.5ML(0.5%) NEB SOLN NEB SCH ×3 (06:55→21:57)
[2020-04-14] MEDS: BUDESONIDE (INHALATION) 0.5 MG/2 ML NEB NEB SCH ×2 (06:55→21:58)
--- NOTE | 2020-04-14 06:55 | NUR ---
Respiratory note: MED NEB TX GIVEN VIA INLINE AEROGEN WITH BIPAP.
--- NOTE | 2020-04-14 07:14 | NUR ---
REPORT RECEIVED FROM [employer] DEVELOPER RN
[2020-04-14] MEDS: HYDROcodone-ACET 5/325MG TAB PO PRN (07:38)
[2020-04-14] MEDS: AZITHROMYCIN 500MG/ 250ML 250 ML IV SCH (07:59)
--- NOTE | 2020-04-14 08:21 | NUR ---
PATIENT ASSISTED WITH BREAKFAST TRAY
--- NOTE | 2020-04-14 09:07 | NUR ---
AYLEEN ESTRADA UPDATED ON PATIENT STATUS ALL QUESTIONS AND CONCERNS ADDRESSED AT THIS TIME
[2020-04-14] MEDS: APIXABAN 2.5 MG TAB PO SCH ×2 (09:34→22:00)
[2020-04-14] MEDS: PANTOPRAZOLE 40 MG TAB PO SCH (09:34)
[2020-04-14] MEDS: ASCORBIC ACID 1,000 MG TAB PO SCH ×2 (09:34→22:00)
[2020-04-14] MEDS: ZINC SULFATE 220mg CAP or TAB PO SCH (09:34)
[2020-04-14] MEDS: CLOPIDOGREL BISULFATE 75 MG TAB PO SCH (09:34)
[2020-04-14] MEDS: METOPROLOL TARTRATE 50 MG TAB PO SCH ×2 (09:35→22:00)
[2020-04-14] MEDS: LISINOPRIL 20 MG TAB PO SCH ×2 (09:35→22:00)
[2020-04-14] MEDS: CHOLECALCIFEROL (VITD3) 2,000 UNIT CAP PO SCH (09:35)
[2020-04-14] MEDS: Sitagliptin Phosphate (Januvia) 100 MG TAB PO SCH (09:36)
[2020-04-14] MEDS: FUROSEMIDE 40 MG/4 ML VIAL IV SCH (10:00)
[2020-04-14] MEDS: NOREPINEPHRINE 8 MG/250ML KIT 250 ML IV SCH (10:45)
[2020-04-14] MEDS: DOXYCYCLINE 100MG/250ML 250 ML IV SCH ×2 (10:46→22:59)
--- NOTE | 2020-04-14 11:59 | NUR ---
FAMILY SON MATHEW UPDATED ON PATIENT STATUS. ALL QUESTIONS AND CONCERNS ADDRESSED AT THIS TIME
--- NOTE | 2020-04-14 12:45 | NUR ---
PATIENT ASSISTED WITH LUNCH TRAY
--- NOTE | 2020-04-14 14:15 | NUR ---
Respiratory note: MED NEB TX GIVEN VIA INLINE AEROGEN ON BIPAP
--- NOTE | 2020-04-14 14:53 | NUR ---
DR. PERLA AT BEDSIDE
[2020-04-14] MEDS: REMDESIVIR 100mg in NS 230ml DAILYx4DAYS (NO VENT) IV SCH (17:31)
--- NOTE | 2020-04-14 17:51 | NUR ---
DR. DYKES AT BEDSIDE
--- NOTE | 2020-04-14 19:30 | NUR ---
PATIENT PULLED MASK OFF. ENTERED ROOM PLACED IT BACK ON. LEFT ROOM. PATIENT PULLED IT OFF AGAIN. ENTERED THE ROOM AND PUT IT BACK ON. DESATURATED TO 83%. PAGED RT AT 1942. RT CAME HERE. DR LYLE WAS HERE. WE DISCUSSED THE NEXT STEP. INCREASED THE 15L NRB TO FULL NRB FLOW. O2 SAT AT BEST 90%. TRIED HI FLOW BY ITSELF. HE DESATURATED TO 83%.
--- NOTE | 2020-04-14 19:40 | NUR ---
TRIED GIVING HIM THICKENED WATER, HE COUGHED. GAVE HIM A TUB OF APPLESAUCE
--- NOTE | 2020-04-14 19:45 | NUR ---
PAGED TO BEDSIDE CONCERNING PTS SATS.
--- NOTE | 2020-04-14 19:48 | NUR ---
ORDERS RECEIVED FOR HFNC PLACEMENT KEEP SATS ABOVE 88% PER MD WILKERSON.
--- NOTE | 2020-04-14 20:10 | NUR ---
RT IN ROOM NT SUCTIONING THE PATIENT.UNABLE TO GET DOWN THE LEFT NARE. WAS ABLE TO ENTER THE RIGHT NARE AND OBTAINED A SMALL AMOUNT OF HARRIS SECRETIONS. PATIENT IS ON HI FLOW AND NRB.O2 SAT 95%. CALL PLACED TO SON NATALIE. EXPLAINED OUR SITUATION. HE IS AWARE THAT HIS FATHER WILL PULL THE BIPAP MASK OFF. HE IS AWARE WE ARE GIVING HIM PAIN MEDICATION. HE STATED THAT IT WAS OK WITH HIM IF WE NEED TO TEMPORARILY RESTRAIN HIM TO OBTAIN PROPER OXYGENATION.
[2020-04-14] MEDS: ATORVASTATIN 20 MG TAB PO SCH (22:00)
--- NOTE | 2020-04-14 22:00 | NUR ---
PATIENT CALLING OUT IN PAIN. MORPHINE GIVEN. LEFT FOREARM SKIN TEAR DRESSING REMOVED. CLEANED SITE WITH WOUND CLEANSER AND DRIED AREA WITH 4X4. NEW FOAM DRESSING WITH THERAHONEY APPLIED. RIGHT FOREARM SKIN TEAR DRESSING REMOVED. SMALL AMOUNT OF SEROUS DRNG. SKIN TEAR CLEANSED WITH WOUND CLEANSER, DRIED AND NEW FOAM DRESSING APPLIED WITH THERAHONEY. BUTTOCKS DRESSING REMOVED EXPOSING A LARGE DTI WITH THE COLORS OF HOT PINK, DARK BURGUNDY AND BLACK. FEW AREAS ARE OPEN AND DRAINING SEROSANGUINOUS DRNG. WOUND HAS AN ODOR. AREA CLEANED WITH WOUND CLEANSER, DRIED WITH STERILE 4X4. NEW FOAM DRESSING APPLIED WITH THE XEROFORM GAUZE. PATIENT POSITIONED ON HIS RIGHT SIDE. O2: NOW ON HIGH FLOW 100% WITH FLOW OF 65. O2 SAT IS 90%.
--- NOTE | 2020-04-14 22:30 | NUR ---
FEBRILE 100.3. TYLENOL GIVEN.
[2020-04-14] MEDS: ACETAMINOPHEN 325 MG TAB PO PRN (22:55)
[2020-04-15] VITALS (52 sets, daily range): BP systolic 95–146; BP diastolic 33–94
--- NOTE | 2020-04-15 | NUR ---
HE WAS CALLING OUT AGAIN. HE WANTS TO GET BETTER, WANTS TO UNDERSTAND WHY HIS BUTTOCKS HURTS. EXPLAINED HIS HIGH OXYGEN REQUIREMENTS, HE WANTS TO GET MOVING AGAIN. EXPLAINED TO HIM WHERE HE ACTUALLY IS PHYSIOLOGICALLY HE WOULD LIKE TO SPEAK TO THE DOCTOR ABOUT INTUBATION AND WHO /HOW IS THE DECISION BEING MADE. DENIES PAIN. REPOSITIONED TO BACK. GIVING HIM APPLESAUCE Q 2 HOURS. TOLD HIM WHY WE AE NOT GIVING HIM WATER. HE COUGHS WITH EVERY DRINK , WHETHER IT IS MIXED WITH THICKENED LIQUID OR NOT.
--- NOTE | 2020-04-15 02:42 | NUR ---
Respiratory note: HFNC CHECK DONE FROM PTS ROOM DOOR DUE TO COVID PRECAUTIONS.NO CHANGES MADE. WILL CONTINUE TO MONITOR.
[2020-04-15] MEDS: HYDROcodone-ACET 5/325MG TAB PO PRN ×3 (03:04→16:20)
--- NOTE | 2020-04-15 05:00 | NUR ---
LINEN CHANGE. CXR COMPLETED
[2020-04-15] MEDS: amLODIPine BESYLATE 5 MG TAB PO SCH ×3 (06:00→22:00)
[2020-04-15 06:42] LABS: Potassium 3.7 mmol/L (3.5-5.1)
[2020-04-15 06:51] LABS: Albumin 1.3 g/dL (3.4-5.0); BUN/Creatinine Ratio 26.3; Bilirubin, Total 0.8 mg/dL (0.2-1.0); Calcium 7.1 mg/dL (8.5-10.1); Total Protein 4.1 g/dL (6.4-8.2)
[2020-04-15] MEDS: ALBUTEROL SULF 2.5 MG/0.5ML(0.5%) NEB SOLN NEB SCH ×3 (07:30→22:13)
[2020-04-15] MEDS: IPRATROPIUM BROM 0.5 MG/2.5ML INH SOL NEB SCH ×3 (07:30→22:14)
--- NOTE | 2020-04-15 07:35 | NUR ---
REPORT REPORT RECEIVED FROM HAO SUE, CARE ASSUMED.
[2020-04-15] MEDS: BUDESONIDE (INHALATION) 0.5 MG/2 ML NEB NEB SCH ×2 (07:50→22:13)
--- NOTE | 2020-04-15 08:25 | NUR ---
INITIAL CONTACT PT OBSERVED RESTING IN BED. NO DISTRESS NOTED AT THIS TIME. PT IS AWAKE, ALERT, AND ORIENTED. AFEBRILE. PT ABLE TO FOLLOW SIMPLE COMMANDS AND ASSIST WITH TURNING. PULSES PALPABLE BILATERALLY. ALL EXTREMITIES OFF LOADED ON PILLOWS. PHYSICAL ASSESSMENT COMPLETE. PT REPOSITIONED ON SIDE. PT ON HIGH FLOW 65 L, FIO2 100%. OXYGEN SATURATION 90-94% ON BEDSIDE MONITOR. DENIES SHORTNESS OF BREATH AT THIS TIME. SEE SKIN/WOUND ASSESSMENT. LEFT IJ TLC, DRESSING CDI. PT INSTRUCTED TO CALL FOR ASSISTANCE. PT VERBALIZED UNDERSTANDING. BED LOCKED IN LOWEST POSITION WITH CALL LIGHT WITHIN REACH. WILL CONTINUE TO MONITOR.
--- NOTE | 2020-04-15 09:00 | NUR ---
FAMILY PATIENT SON CALLED FOR UPDATE. ALL QUESTIONS AND CONCERNS ADDRESSED.
[2020-04-15] MEDS: FUROSEMIDE 40 MG/4 ML VIAL IV SCH (09:11)
[2020-04-15] MEDS: ZINC SULFATE 220mg CAP or TAB PO SCH (09:11)
[2020-04-15] MEDS: AZITHROMYCIN 500MG/ 250ML 250 ML IV SCH (09:11)
[2020-04-15] MEDS: PANTOPRAZOLE 40 MG TAB PO SCH (09:12)
[2020-04-15] MEDS: CLOPIDOGREL BISULFATE 75 MG TAB PO SCH (09:12)
[2020-04-15] MEDS: ASCORBIC ACID 1,000 MG TAB PO SCH ×2 (09:12→22:25)
[2020-04-15] MEDS: CHOLECALCIFEROL (VITD3) 2,000 UNIT CAP PO SCH (09:12)
[2020-04-15] MEDS: APIXABAN 2.5 MG TAB PO SCH ×2 (09:12→22:25)
[2020-04-15] MEDS: METOPROLOL TARTRATE 50 MG TAB PO SCH ×2 (09:13→22:00)
--- NOTE | 2020-04-15 09:30 | NUR ---
ORAL INTAKE PT TOLERATED CRUSHED MEDICATIONS IN APPLESAUCE. PT PLACED IN HIGH FOWLERS FOR ASPIRATION PRECAUTIONS. PT COUGHED FREQUENTLY WITH MILK AND CREAM OF WHEAT. PT HAS STRONG COUGH. OXYGEN SATURATION MAINTAINING GREATER THAN 90%.
[2020-04-15] MEDS: Sitagliptin Phosphate (Januvia) 100 MG TAB PO SCH (10:00)
--- NOTE | 2020-04-15 10:00 | NUR ---
PAIN PT C/O LEFT SHOULDER/ ARM PAIN /, PT REQUESTING PAIN MEDICATION.
[2020-04-15] MEDS: NOREPINEPHRINE 8 MG/250ML KIT 250 ML IV SCH (10:01)
--- NOTE | 2020-04-15 11:11 | NUR ---
SEDATION HELD SEDATION BEING HELD PER FOR CPAP TRIAL ATTEMPT TODAY. Addendum: 04/15/20 at 1111 by Elsy Ellison RN WRONG PATIENT
[2020-04-15] MEDS: DOXYCYCLINE 100MG/250ML 250 ML IV SCH (12:04)
[2020-04-15] MEDS: LISINOPRIL 20 MG TAB PO SCH ×3 (12:04→23:53)
--- NOTE | 2020-04-15 12:45 | NUR ---
MD VISIT ROUNDING ON PATIENT. MD REVIEWING MEDICAL CHART. NEW ORDERS OBTAINED.
--- NOTE | 2020-04-15 13:10 | NUR ---
FIO2 PT FIO2 DECREASED TO 90%. OXYGEN SATURATION MAINTAINING GREATER THAN 92%.
--- NOTE | 2020-04-15 16:00 | NUR ---
DESATURATION PATIENT OXYGEN SATURATION 87%. PT INSTRUCTED TO BREATH THROUGH NOSE. NO CHANGE. FIO2 INCREASED TO 100%.
--- NOTE | 2020-04-15 16:20 | NUR ---
CARES PARTIAL LINEN CHANGE COMPLETED. LEFT FOREARM AND SACRUM DRESSING CHANGE COMPLETED. PT REPOSITIONED ON SIDE WITH ALL EXTREMITIES OFF LOADED ON PILLOWS. CALL LIGHT WITHIN REACH. PT INSTRUCTED TO CALL FOR ASSISTANCE. PT VERBALIZED UNDERSTANDING.
[2020-04-15] MEDS: REMDESIVIR 100mg in NS 230ml DAILYx4DAYS (NO VENT) IV SCH (17:35)
--- NOTE | 2020-04-15 19:00 | NUR ---
MD VISIT ROUNDDARCI AT BEDSIDE. MD DOWNGRADE PATIENT TO NICOLA STATUS.
--- NOTE | 2020-04-15 19:20 | NUR ---
RECEIVED REPORT FROM NURSE ROSALBA TO ASSUME CARE OF PATIENT.
--- NOTE | 2020-04-15 19:35 | NUR ---
REPORT REPORT GIVEN TO MUNA SUE, CARE ENDORSED.
--- NOTE | 2020-04-15 20:10 | NUR ---
UPDATED AYLEEN العلي ON PATIENT STATUS.
--- NOTE | 2020-04-15 21:30 | NUR ---
REPORT REPORT RECEIVED FROM LINETTE TORO.PATIENT IS ON ISOLATION FOR POSITIVE COVID. PATIENT IS AWAKE,WATCHING TV. ON HIGH FLOW AT 65L,FIO2 100%, RR 25-30/MIN, SATS 90-93% ECG SR HR 70-80/MIN, BP STABLE. FULL ASSESSMENT -REFER INTERVENTIONS WILL CONTINUE TO MONITOR
--- NOTE | 2020-04-15 21:31 | NUR ---
GAVE REPORT TO NURSE WALLACE TO RESUME CARE OF PATIENT
[2020-04-15] MEDS: ATORVASTATIN 20 MG TAB PO SCH (22:25)
[2020-04-16] VITALS (46 sets, daily range): BP systolic 98–145; BP diastolic 35–85
[2020-04-16] MEDS: DOXYCYCLINE 100MG/250ML 250 ML IV SCH ×2 (00:13→14:00)
--- NOTE | 2020-04-16 00:13 | NUR ---
DESATURATION PATIENT PULLED DOWN HIS HIGH FLOW CANNULA DESATURATED LOW 65% PATIENT SEEMS CONFUSED UPON ASKING HIM RE-ORIENTED AND EXPLAINED THE IMPORTANCE OF HIM NOT PULLING DOWN HIS OXYGEN SATURATION PICKED UP TO 90-91% - FLOW NOW AT 55L, FIO2 100%
--- NOTE | 2020-04-16 01:28 | NUR ---
STARTED CONVALESCENT PLASMA
[2020-04-16] MEDS: HYDROcodone-ACET 5/325MG TAB PO PRN ×2 (03:00→11:00)
--- NOTE | 2020-04-16 04:30 | NUR ---
PATIENT'S SATS 86-89% INFORMED RT ANDIE
[2020-04-16 04:53] LABS: Basophils # (auto) 0 10 ^3/uL (0-0.2); Basophils % (auto) 0.1 % (0.0-2.0); Eosinophils # (auto) 0 10 ^3/uL (0-0.8); Eosinophils % (auto) 0.1 % (0.0-7.0); Hematocrit 30.5 % (41.0-53.0); Hemoglobin 9.8 g/dL (13.5-17.5); Lymphocytes # (auto) 0.5 10 ^3/uL (0.4-5.4); Lymphocytes % (auto) 4.8 % (10.0-50.0); Mean Corpuscular Hemoglobin 29.8 pg (28.0-32.0); Mean Corpuscular Hgb Conc. 32.1 g/dL (32.0-36.0); Mean Corpuscular Volume 92.8 fL (80.0-100.0); Monocytes # (auto) 0.3 10 ^3/uL (0-1.3); Monocytes % (auto) 3.3 % (0.0-12.0); Neutrophils # (auto) 8.8 10 ^3/uL (1.6-8.6); Neutrophils % (auto) 91.7 % (37.0-80.0); Nucleated Red Blood Cells % 0.2 %; Platelet Count (auto) 248 10^3/uL (140-450); Red Blood Cells 3.28 10^6/uL (4.5-5.90); Red Cell Distribution Width 14.1 % (11.8-14.3); White Blood Cell 9.6 10^3/uL (4.4-10.8)
[2020-04-16 05:13] LABS: Potassium 3.6 mmol/L (3.5-5.1)
[2020-04-16 05:24] LABS: Albumin 1.6 g/dL (3.4-5.0); BUN/Creatinine Ratio 25.3; Bilirubin, Total 1.1 mg/dL (0.2-1.0); CRP High Sensitivity 13.4 mg/dL (< 0.3); Calcium 7.7 mg/dL (8.5-10.1); Total Protein 4.7 g/dL (6.4-8.2)
--- NOTE | 2020-04-16 05:45 | NUR ---
HYGIENE/DRESSING CHANGE PATIENT CLEANED WITH CHG WIPES. LINENS CHANGED LEFT ARM SKIN TEAR DRESSING SOAKED - CHANGED. CLEANED WITH SALINE,COVERED WITH THERA HONEY GAUZE AND OPTIFOAM GENTLE. SACRAL OPTIFOAM CHANGED - SKIN REMAINED WITH SKIN TEAR AND DTI
[2020-04-16] MEDS: amLODIPine BESYLATE 5 MG TAB PO SCH ×3 (06:00→23:51)
--- NOTE | 2020-04-16 06:00 | NUR ---
ORAL CARE DONE,SUCTIONED ORALLY - VERY MINIMAL SECRETIONS
--- NOTE | 2020-04-16 06:10 | NUR ---
RESPIRATORY SATURATIONS 88-91% HIGH FLOW AT 65L, FIO2 100% ENCOURAGED PATIENT TO DO DEEP BREATHING EXERCISES WILL CONTINUE TO MONITOR
--- NOTE | 2020-04-16 06:23 | NUR ---
NORVASC NOT GIVEN PATIENT'S BP TRENDING DOWN FROM 120 SYSTOLIC, NOW TO DOWN TO 105
[2020-04-16] MEDS: IPRATROPIUM BROM 0.5 MG/2.5ML INH SOL NEB SCH ×3 (06:43→22:23)
[2020-04-16] MEDS: ALBUTEROL SULF 2.5 MG/0.5ML(0.5%) NEB SOLN NEB SCH ×3 (06:43→22:23)
[2020-04-16] MEDS: ASCORBIC ACID 1,000 MG TAB PO SCH ×2 (10:00→21:35)
[2020-04-16] MEDS: Sitagliptin Phosphate (Januvia) 100 MG TAB PO SCH (10:00)
[2020-04-16] MEDS: APIXABAN 2.5 MG TAB PO SCH ×2 (10:00→21:34)
[2020-04-16] MEDS: CLOPIDOGREL BISULFATE 75 MG TAB PO SCH (10:00)
[2020-04-16] MEDS: CHOLECALCIFEROL (VITD3) 2,000 UNIT CAP PO SCH (10:00)
[2020-04-16] MEDS: ZINC SULFATE 220mg CAP or TAB PO SCH (10:00)
[2020-04-16] MEDS: FUROSEMIDE 40 MG/4 ML VIAL IV SCH (10:00)
[2020-04-16] MEDS: PANTOPRAZOLE 40 MG TAB PO SCH (10:00)
[2020-04-16] MEDS: METOPROLOL TARTRATE 50 MG TAB PO SCH ×2 (10:00→21:35)
--- NOTE | 2020-04-16 10:42 | NUR ---
Nutrition Followup Notes Pt wt is 80.0 kg Pt is positive for COVID. Pt is on high flow oxygen Pt is with a CCHO 60g diet pt appetite seems to have decreased. Pt po intake is inadequate aeb pt with 25% po intake x 2 days per Rn note. Spoke to RN in ICU to add Glucerna [address] recommendation and signed by MD. Est energy needs BW 68 [id number] kcal (25-30 kcal/kg BW), Est protein needs: 68-88 g (1.0-1.3g/kg BW r/t wounds hypoalb) Will reassess prn. LABS: BUN 25H, Alb 1.6L, Ca 7.7L GI: Pt with a daily BM per RN doc. BS: 14 mod risk. Refer to wound assessment report for full details. PES: 1) Altered nutrition related lab values r.t current chronic medical condition aeb elev BUN severe hypoalb 2) Increased nutrient needs r/t chronic medical condition aeb pt`s with wounds severe hypoalb poor PO Comments 1) consider glucerna 1 carton bid 2) consider MVI/C bid 3) refer to CDE on DC 4) consider soft diet along with current diet 5) continue assistance with meals 6) continue current plan of care
[2020-04-16] MEDS: NOREPINEPHRINE 8 MG/250ML KIT 250 ML IV SCH (10:45)
[2020-04-16] MEDS: AZITHROMYCIN 500MG/ 250ML 250 ML IV SCH (11:00)
--- NOTE | 2020-04-16 12:30 | NUR ---
HOSPITALIST AT BEDSIDE DR ESTRADA UPDATED ON PATIENT'S STATUS AND VITAL SIGNS. NO ORDERS GIVEN AT THIS TIME.
--- NOTE | 2020-04-16 12:40 | NUR ---
CT ON HOLD PER HOSPITALIST DR ESTRADA AWARE OF COVID PRECAUTIONS WHEN TRANSFERRING PATIENT FOR HEAD CT. PER DR ESTRADA "IT IS NOT AN EMERGENCY, IT CAN WAIT - HOLD HEAD CT". DEAN CHARGE NURSE AWARE.
[2020-04-16] MEDS: LISINOPRIL 20 MG TAB PO SCH (13:00)
[2020-04-16] MEDS: BUDESONIDE (INHALATION) 0.5 MG/2 ML NEB NEB SCH ×2 (14:40→22:23)
--- NOTE | 2020-04-16 14:50 | NUR ---
Family updated on pt status Family of ANTONIA OSUNA updated on patient's status and condition after password verification. All questions and concerns addressed. Patient's son Tam verbalized understanding and provided further information regarding patient's history. 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 He also mentioned that there are 3 sons, Tam who lives in [place]; Kristopher lives in [place] and Cristóbal lives in [facility] and is the brother who would come and visit father in [place] about 2 - 3 days a week. Tam did mention that brother Cristóbal is now admitted at [facility] positive for Covid as well and would like this information withheld from his father for now. Tam mentioned as well that they had hired assistance to help with father at home after surgery but this person was not a nurse.
[2020-04-16] MEDS: REMDESIVIR 100mg in NS 230ml DAILYx4DAYS (NO VENT) IV SCH (18:02)
--- NOTE | 2020-04-16 20:00 | NUR ---
SATS 83-87% REPOSITIONED.PROPPED PATIENT ENCOURAGED PATIENT TO TRY REST AND DO DEEP BREATHING EXERCISES PAGED RT
--- NOTE | 2020-04-16 20:35 | NUR ---
SATS ARE BETTER 92-93% PATIENT IS RESTING NOW, EYES CLOSED
--- NOTE | 2020-04-16 21:30 | NUR ---
ROUNDS/MEDICATION PATIENT IS LOOKING FOR HIS WALLET. INFORMED HIM THAT ITS NOT INSIDE THE ROOM. HE SAID PROBABLY IN THE SAFE. INFORMED HIM THAT THIS RN WILL CHECK AND LOOK FOR IT. PATIENT DESATURATES WHEN HE TALKS OR MOVES - SATS 85-89% ENCOURAGED PATIENT TO REST GAVE SOME OF HIS DINNER - CARROTS AND MASHED POTATO. ATE A LITTLE. ORAL MEDICATIONS CRUSHED AND GIVEN WITH APPLE SAUCE - TOLERATED WELL ORAL CARE DONE
[2020-04-16] MEDS: ATORVASTATIN 20 MG TAB PO SCH (21:34)
[2020-04-16] MEDS: MORPHINE SULF INJ 2 MG/ML SYRINGE 1ML IV PRN (23:53)
--- NOTE | 2020-04-16 23:53 | NUR ---
ROUNDS PATIENT WATCHING TV, PULLING ELECTRODES THINKING IT WAS THE REMOTE. GAVE REMOTE TO THE PATIENT. GAVE HIS DOSE OF NORVASC BP 116/50 MMHG PATIENT DID COMPLAIN OF LOWER BACK/SACRAL PAIN. REPOSITIONED,TURNED TO SIDE IV MORPHINE GIVEN TO KEEP COMFORTABLE PATIENT STILL DESATURATING 85-89%. TALKED HIM OVER PUTTING ON BIPAP - HE AGREED,WILL INFORM RT ENCOURAGE TO REST
[2020-04-17] VITALS (36 sets, daily range): BP systolic 88–133; BP diastolic 44–72
[2020-04-17] MEDS: DOXYCYCLINE 100MG/250ML 250 ML IV SCH ×3 (00:19→23:16)
[2020-04-17] MEDS: LISINOPRIL 20 MG TAB PO SCH ×3 (01:05→22:00)
--- NOTE | 2020-04-17 01:06 | NUR ---
RE-ASSESS PATIENT IS OW ON BIPAP WITH SETTINGS: IPAP 14,EPAP8, RATE 12, FIO2 100% BREATHING 20-27/MIN, SATS 92% PATIENT IS RESTING, EYES CLOSED. WILL CONTINUE TO MONITOR
--- NOTE | 2020-04-17 01:56 | NUR ---
PATIENT GETTING ANXIOUS WITH THE BIPAP EXPLAINED IMPORTANCE OF BIPAP - PATIENT SAID HE UNDERSTOOD STILL BREATHING 30'S/MIN, SATS 87-89% PAGED HOSPITALIST
--- NOTE | 2020-04-17 02:15 | NUR ---
PATIENT PULLED OUT THE STRAP OF HIS BIPAP MASK TALKED TO PATIENT AND EXPLAINED AGAIN THE IMPORTANCE OF BIPAP PATIENT SAID HE UNDERSTOOD - WILL CONTINUE TO MONITOR STILL BREATHING 30'S/MIN, SATS 87-90% AWAITING HOSPITALIST CALL BACK
[2020-04-17] MEDS ORDERED: LORazepam 2MG/ML-1ML VIAL IV ONE (02:30)
--- NOTE | 2020-04-17 02:45 | NUR ---
HYGIENE SPONGE BATH DONE TO KEEP PATIENT COMFORTABLE LINEN CHANGED REPOSITIONED
[2020-04-17 05:40] LABS: Basophils # (auto) 0 10 ^3/uL (0-0.2); Basophils % (auto) 0.3 % (0.0-2.0); Eosinophils # (auto) 0 10 ^3/uL (0-0.8); Eosinophils % (auto) 0.1 % (0.0-7.0); Hematocrit 30.8 % (41.0-53.0); Lymphocytes # (auto) 0.4 10 ^3/uL (0.4-5.4); Lymphocytes % (auto) 4.2 % (10.0-50.0); Mean Corpuscular Hemoglobin 30.1 pg (28.0-32.0); Mean Corpuscular Hgb Conc. 32.4 g/dL (32.0-36.0); Mean Corpuscular Volume 92.9 fL (80.0-100.0); Monocytes # (auto) 0.3 10 ^3/uL (0-1.3); Monocytes % (auto) 2.7 % (0.0-12.0); Neutrophils # (auto) 8.6 10 ^3/uL (1.6-8.6); Neutrophils % (auto) 92.7 % (37.0-80.0); Platelet Count (auto) 232 10^3/uL (140-450); Red Blood Cells 3.31 10^6/uL (4.5-5.90); Red Cell Distribution Width 14.5 % (11.8-14.3); White Blood Cell 9.3 10^3/uL (4.4-10.8)
[2020-04-17] MEDS: amLODIPine BESYLATE 5 MG TAB PO SCH ×3 (06:00→22:00)
--- NOTE | 2020-04-17 06:00 | NUR ---
ROUNDS PATIENT TAKEN OFF FROM BIPAP MASK PLACED ON HIGH FLOW AGAIN FACE WIPED, ORAL CARE DONE PATIENT STILL GROGGY, ANSWERS YES OR NO. CRIES EVERY TIME HEAD WAS MOVED PLACED BACK ON BIPAP MASK - RR 45/MIN, SPO2 80% - SLOWLY PICKING UP WILL CONTINUE TO OBSERVE
[2020-04-17 06:03] LABS: Calcium 7.6 mg/dL (8.5-10.1); Potassium 3.5 mmol/L (3.5-5.1)
[2020-04-17 06:05] LABS: BUN/Creatinine Ratio 28.8
--- NOTE | 2020-04-17 06:16 | NUR ---
[facility] PATIENT IS STILL GROGGY BP 117/72
[2020-04-17] MEDS: ALBUTEROL SULF 2.5 MG/0.5ML(0.5%) NEB SOLN NEB SCH ×3 (06:21→22:30)
[2020-04-17] MEDS: IPRATROPIUM BROM 0.5 MG/2.5ML INH SOL NEB SCH ×3 (06:21→22:30)
[2020-04-17] MEDS: BUDESONIDE (INHALATION) 0.5 MG/2 ML NEB NEB SCH ×2 (06:22→22:30)
--- NOTE | 2020-04-17 06:52 | NUR ---
REMAINED ON BIPAP, SATS 95%,RR 28 STILL SLEEPING
--- NOTE | 2020-04-17 07:30 | NUR ---
REPORT REPORT GIVEN TO LINETTE DIAZ
[2020-04-17] MEDS: ASCORBIC ACID 1,000 MG TAB PO SCH ×2 (10:00→22:00)
[2020-04-17] MEDS: ZINC SULFATE 220mg CAP or TAB PO SCH (10:00)
[2020-04-17] MEDS: FUROSEMIDE 40 MG/4 ML VIAL IV SCH (10:00)
[2020-04-17] MEDS: AZITHROMYCIN 500MG/ 250ML 250 ML IV SCH (10:00)
[2020-04-17] MEDS: APIXABAN 2.5 MG TAB PO SCH ×2 (10:00→22:10)
[2020-04-17] MEDS: CHOLECALCIFEROL (VITD3) 2,000 UNIT CAP PO SCH (10:00)
[2020-04-17] MEDS: Sitagliptin Phosphate (Januvia) 100 MG TAB PO SCH (10:00)
[2020-04-17] MEDS: CLOPIDOGREL BISULFATE 75 MG TAB PO SCH (10:00)
[2020-04-17] MEDS: PANTOPRAZOLE 40 MG TAB PO SCH (10:00)
[2020-04-17] MEDS: METOPROLOL TARTRATE 50 MG TAB PO SCH ×2 (10:00→14:19)
--- NOTE | 2020-04-17 16:08 | NUR ---
Pt awake and follows commands oriented times 3 to4 but drowsy.On BIPAP 12/04 with a back up rate of 12 breathing fast off and on as high as 34 a bit shallow .Saturating 94 to 99 % up and down but seem to be sustained 98 to 99 % taking good VT 610 to 630 Non productive secretions Addendum: 04/17/20 at 1950 by EMILY GUILLORY RN RN Pt awake and calm .Given applesauce and ,for TPN in am stilltaking goodVT 620
[2020-04-17] MEDS ORDERED: TPN PER PHARMACY 0 ML IV SCH (17:00)
[2020-04-17 17:30] LABS: Phosphorus 2.9 mg/dL (2.5-4.90)
--- NOTE | 2020-04-17 19:08 | NUR ---
Report received from LINETTE Rodriguez. Patient on Bi-PAP 12/04, Back-up Rate 12, FiO2 100%. Patient is restless today and attempts to pull off Bi-PAP mask per report. Patient was restrained. IVF NS TKO. Will continue with POC; and, will continue to monitor VS & clinical status.
[2020-04-17] MEDS: MORPHINE SULF INJ 2 MG/ML SYRINGE 1ML IV PRN (20:00)
[2020-04-17] MEDS ORDERED: CLINIMIX PER PHARMACY IV NR (20:00)
--- NOTE | 2020-04-17 20:00 | NUR ---
Rtn scheduled medication given. See e-MAR. Patient restless and attempting to reach for ETT with restrained hand. Patient medicated with Morphine 2 mg IVP.
--- NOTE | 2020-04-17 20:00 | NUR ---
Dr. Merritt signed Soft Restraint Form.
[2020-04-17] MEDS: ATORVASTATIN 20 MG TAB PO SCH (22:00)
--- NOTE | 2020-04-17 22:00 | NUR ---
Rtn scheduled medications given. See e-MAR.
--- NOTE | 2020-04-17 23:15 | NUR ---
Rtn scheduled medication given. See e-MAR.
[2020-04-18] VITALS (54 sets, daily range): BP systolic 72–143; BP diastolic 30–73
[2020-04-18] MEDS ORDERED: DEXTROSE (50%) 50ML SYRG IV SCH
[2020-04-18] MEDS: ACCU-CHEK COMFORT CURVE STRIP VI SCH ×4 (00:01→18:15)
[2020-04-18] MEDS: InsuLIN REG 1unit/0.01ml Soln (100units/ml) SC SCH ×4 (00:03→17:26)
--- NOTE | 2020-04-18 00:07 | NUR ---
Accucheck 169 mg/dl. Patient covered with Regular Insulin 4 units SQ per Sliding Scale.
--- NOTE | 2020-04-18 03:58 | NUR ---
Contact Center Director collected am labs from [facility]. Specimens given to Linseed Oil Refiner and specimens sent to lab.
[2020-04-18 04:51] LABS: Albumin 1.5 g/dL (3.4-5.0); Anion Gap 8 (5-15); Blood Urea Nitrogen 47 mg/dL (7-18); Calcium 7.5 mg/dL (8.5-10.1); Carbon Dioxide 25 mmol/L (21-32); Chloride 103 mmol/L (98-107); Glucose 136 mg/dL (74-106); Potassium 3.4 mmol/L (3.5-5.1); Sodium 136 mmol/L (136-145)
[2020-04-18 04:56] LABS: Alanine Aminotransferase 22 U/L (16-61); Alkaline Phosphatase 200 U/L (45-117); Aspartate Aminotransferase 54 U/L (15-37); Bilirubin, Total 1.7 mg/dL (0.2-1.0); GFR African American 58 mL/min; GFR Non-African American 48 mL/min; Phosphorus 3.1 mg/dL (2.5-4.90); Pre Albumin < 3.0 mg/dL (20.0-40.0); Total Protein 4.8 g/dL (6.4-8.2); Triglycerides 19 mg/dL (< 150)
[2020-04-18] MEDS: amLODIPine BESYLATE 5 MG TAB PO SCH ×3 (06:00→22:00)
--- NOTE | 2020-04-18 06:00 | NUR ---
Rtn scheduled medication given. Accucheck 136 mg/dl. Patient covered with Regular Insulin 2 units SQ per Sliding Scale.
--- NOTE | 2020-04-18 06:05 | NUR ---
SpO2 84%. Patient instructed to slow deep breaths. Patient unable to deep breath. FiO2 increased to 100%. RT called.
--- NOTE | 2020-04-18 06:20 | NUR ---
RT at bedside.
[2020-04-18] MEDS: ALBUTEROL SULF 2.5 MG/0.5ML(0.5%) NEB SOLN NEB SCH ×3 (06:50→23:10)
[2020-04-18] MEDS: IPRATROPIUM BROM 0.5 MG/2.5ML INH SOL NEB SCH ×3 (06:50→23:10)
[2020-04-18] MEDS: BUDESONIDE (INHALATION) 0.5 MG/2 ML NEB NEB SCH ×2 (06:50→23:09)
[2020-04-18] MEDS: AZITHROMYCIN 500MG/ 250ML 250 ML IV SCH (10:00)
[2020-04-18] MEDS: ZINC SULFATE 220mg CAP or TAB PO SCH (10:00)
[2020-04-18] MEDS: Sitagliptin Phosphate (Januvia) 100 MG TAB PO SCH (10:00)
[2020-04-18] MEDS: PANTOPRAZOLE 40 MG TAB PO SCH (10:00)
[2020-04-18] MEDS: METOPROLOL TARTRATE 50 MG TAB PO SCH ×3 (10:00→11:35)
[2020-04-18] MEDS: CLOPIDOGREL BISULFATE 75 MG TAB PO SCH (10:00)
[2020-04-18] MEDS: ASCORBIC ACID 1,000 MG TAB PO SCH ×2 (10:00→22:00)
[2020-04-18] MEDS: CHOLECALCIFEROL (VITD3) 2,000 UNIT CAP PO SCH (10:00)
[2020-04-18] MEDS: FUROSEMIDE 40 MG/4 ML VIAL IV SCH (10:00)
[2020-04-18] MEDS: APIXABAN 2.5 MG TAB PO SCH ×2 (10:00→22:00)
[2020-04-18] MEDS: LISINOPRIL 20 MG TAB PO SCH ×2 (10:00→22:00)
[2020-04-18] MEDS ORDERED: POTASSIUM CHL 20MEQ/100ML 100 ML IV ONE ×2 (10:45→11:44)
[2020-04-18] MEDS: DOXYCYCLINE 100MG/250ML 250 ML IV SCH ×2 (11:36→23:21)
--- NOTE | 2020-04-18 11:48 | NUR ---
Nutrition Followup Notes Pt wt is 81.5 kg Pt is positive for COVID. Pt on BiPAP per Rn note. Pt with CCHO 60g diet order with poor po intake aeb pt with "few bites" taken 04/16 per RN note and poor intake 04/17. Per MD order pt to start on TPN. TPN ordered at 46 ml/hr to provide 1150 kcal and 50g protein, 950 NPC. This provides 56-68% of energy needs and 77-100% of protein needs. Est energy needs BW 68 [id number] kcal (25-30 kcal/kg BW), Est protein needs: 50-65g (0.6-0.8g/kg BW r/t CARIE, elevated RFTs, increase if CARIE resolves) Will reassess prn. LABS: BUN 47H, Creat 1.47H, Alb 1.5L, Ca 7.5L, GLUC 136H GI: Pt with no BM noted per RN note since last followup. BS: 14 mod risk. Refer to wound assessment report for full details. PES: 1) Altered nutrition related lab values r.t current chronic medical condition aeb elev BUN severe hypoalb 2) Increased nutrient needs r/t chronic medical condition aeb pt`s with wounds severe hypoalb poor PO Continue TPN to meet >75% of needs while pt PO intake is poor Comments 1) consider glucerna 1 carton bid 2) consider MVI/C bid 3) refer to CDE on DC 4) consider soft diet along with current diet 5) continue assistance with meals 6) continue current plan of care
--- NOTE | 2020-04-18 14:29 | NUR ---
Respiratory note: FINAL BIPAP CHECK DONE. NO CHANGES MADE AT THIS TIME. PT'S BREATH SOUNDS ARE COARSE. PT RECEIVE INLINE TX. NO ADVERSE REACTION NOTED. PT HAS INCREASED WOB AND RR IS IN THE HIGH 40'S. PT ALSO STATED HE IS IN PAIN. RN WAS NOTIFY. WILL ENDORSE PT'S CARE TO NOC RT.
[2020-04-18] MEDS ORDERED: MORPHINE SULF INJ 2 MG/ML SYRINGE 1ML IV PRN (15:00)
[2020-04-18] MEDS ORDERED: DIGOXIN (250MCG/ML) 2 ML AMPULE IV ONE (15:15)
[2020-04-18] MEDS: AMIODARONE 450mg/250ml AE 250 ML IV SCH ×3 (16:38→22:38)
[2020-04-18] MEDS: MORPHINE SULF INJ 2 MG/ML SYRINGE 1ML IV PRN (18:41)
--- NOTE | 2020-04-18 19:00 | NUR ---
Report received from LINETTE Long. Patient Extubated today at 1300, placed on Bi-PAP, now on NC at 4 LO/M. Patient was off from Dopamine, however Dopamine re-started at 2 mcg/kg/min. Will continue with POC; and, will continue to monitor VS, focus on BP, and clinical status. Signed: 04/18/20 at 1938 by Jesse Thompson RN Addendum: 04/18/20 at 0 by Jesse Thompson RN Disregard note above. Charted on wrong patient. Signed: 04/18/20 at 1940 by Jesse Thompson RN
--- NOTE | 2020-04-18 19:12 | NUR ---
Report received from LINETTE Rodriguez. Patient in A-Fib, uncontrolled. Amiodarone drip started at 1 mg/hr. Clinimix at 50 ml/hr. Patient in Isolation due to Positive COVID-19. Per report, patient is NPO except possible Metoprolol tonight. Will continue with POC; and, will continue to monitor VS, focus on HR and Cardiac Rythm, and clinical status.
[2020-04-18] MEDS ORDERED: SODIUM CHLORIDE IV NR ×11 (20:00)
[2020-04-18] MEDS ORDERED: [UNRECOGNIZED DRUG - OTHER] IV NR ×11 (20:00)
[2020-04-18] MEDS ORDERED: FAT EMULSION IV NR ×11 (20:00)
[2020-04-18] MEDS ORDERED: SODIUM PHOSPHATES IV NR ×11 (20:00)
--- NOTE | 2020-04-18 20:00 | NUR ---
TPN started at 46 ml/hr. Restraint Order Renewed. Patient complain of CP and medicated with Morphine 2 mg IVP.
--- NOTE | 2020-04-18 20:05 | NUR ---
awake and very much aware what is going on around him .Quite tachypnoeic today 29 to 34 even 38 only once or twice 25 .MD requested all meds to be held now except metropolol . and increased morphine to 3 hourly . In afib [facility] gave order for dig later followed with amiodarone drip low grade fever this morning of 99 Addendum: 04/19/20 at 0854 by EMILY GUILLORY RN RN Amiodarone started at around 1600 post Dig 0.d HR down around 99 to 106
[2020-04-18] MEDS: ATORVASTATIN 20 MG TAB PO SCH (22:00)
--- NOTE | 2020-04-18 22:00 | NUR ---
Rtn scheduled medication HELD due to patient aspirating upon swallowing small quantity of water. Assembly Technician concerned patient is aspirating.
--- NOTE | 2020-04-18 23:15 | NUR ---
Rtn schedule medication given.
[2020-04-19] VITALS (77 sets, daily range): BP systolic 93–147; BP diastolic 15–79
--- NOTE | 2020-04-19 | NUR ---
Accucheck 248 mg/dl. Patient medicated with Regular Insulin 8 units SQ per Sliding Scale.
[2020-04-19] MEDS: MORPHINE SULF INJ 2 MG/ML SYRINGE 1ML IV PRN ×3 (00:30→21:39)
--- NOTE | 2020-04-19 00:30 | NUR ---
Patient restless and Tachypneic. Patient medicated with Morphine 2 mg IVP.
[2020-04-19] MEDS: AMIODARONE 450mg/250ml AE 250 ML IV SCH ×2 (01:25→18:29)
--- NOTE | 2020-04-19 01:25 | NUR ---
Amiodarone drip bag changed to new bag.
--- NOTE | 2020-04-19 02:10 | NUR ---
Patient complain of CP. Patient medicated with Morphine 2 mg IVP.
--- NOTE | 2020-04-19 03:50 | NUR ---
Unloading Checker at room side. Firefighter Marine collected AM Blood and specimens given to Unloading Checker. Specimens sent to lab.
[2020-04-19 04:52] LABS: Basophils # (auto) 0 10 ^3/uL (0-0.2); Basophils % (auto) 0.2 % (0.0-2.0); Eosinophils # (auto) 0 10 ^3/uL (0-0.8); Eosinophils % (auto) 0.1 % (0.0-7.0); Hematocrit 30.7 % (41.0-53.0); Lymphocytes # (auto) 0.4 10 ^3/uL (0.4-5.4); Lymphocytes % (auto) 3.1 % (10.0-50.0); Mean Corpuscular Hemoglobin 30.1 pg (28.0-32.0); Mean Corpuscular Hgb Conc. 32.6 g/dL (32.0-36.0); Mean Corpuscular Volume 92.5 fL (80.0-100.0); Monocytes # (auto) 0.3 10 ^3/uL (0-1.3); Monocytes % (auto) 2.3 % (0.0-12.0); Neutrophils # (auto) 12.5 10 ^3/uL (1.6-8.6); Neutrophils % (auto) 94.3 % (37.0-80.0); Platelet Count (auto) 162 10^3/uL (140-450); Red Blood Cells 3.32 10^6/uL (4.5-5.90); Red Cell Distribution Width 14.5 % (11.8-14.3); White Blood Cell 13.3 10^3/uL (4.4-10.8)
--- NOTE | 2020-04-19 05:15 | NUR ---
Partial bath and linen change.
[2020-04-19 05:20] LABS: Albumin 1.3 g/dL (3.4-5.0); Calcium 7.6 mg/dL (8.5-10.1); Potassium 3.9 mmol/L (3.5-5.1)
[2020-04-19 05:23] LABS: Bilirubin, Total 2.4 mg/dL (0.2-1.0); Total Protein 4.4 g/dL (6.4-8.2)
[2020-04-19 05:24] LABS: BUN/Creatinine Ratio 37.6
--- NOTE | 2020-04-19 05:47 | NUR ---
PCXR done at bedside.
[2020-04-19] MEDS: InsuLIN REG 1unit/0.01ml Soln (100units/ml) SC SCH ×3 (06:00→18:10)
[2020-04-19] MEDS: amLODIPine BESYLATE 5 MG TAB PO SCH ×3 (06:00→21:54)
--- NOTE | 2020-04-19 06:00 | NUR ---
Rtn schedule PO medication held due to patient aspirated earlier in shift. Accucheck 231 mg/dl. Patient covered with Regular Insulin 8 units SQ per Sliding Scale.
[2020-04-19] MEDS: ACCU-CHEK COMFORT CURVE STRIP VI SCH ×4 (06:26→17:33)
[2020-04-19] MEDS: ALBUTEROL SULF 2.5 MG/0.5ML(0.5%) NEB SOLN NEB SCH ×3 (06:28→22:25)
[2020-04-19] MEDS: IPRATROPIUM BROM 0.5 MG/2.5ML INH SOL NEB SCH ×3 (06:28→22:25)
[2020-04-19] MEDS: BUDESONIDE (INHALATION) 0.5 MG/2 ML NEB NEB SCH ×2 (06:28→22:25)
[2020-04-19] MEDS: Sitagliptin Phosphate (Januvia) 100 MG TAB PO SCH (10:00)
[2020-04-19] MEDS: APIXABAN 2.5 MG TAB PO SCH ×2 (10:00→21:53)
[2020-04-19] MEDS: ASCORBIC ACID 1,000 MG TAB PO SCH ×2 (10:00→21:54)
[2020-04-19] MEDS: LISINOPRIL 20 MG TAB PO SCH ×2 (10:00→21:54)
[2020-04-19] MEDS: CLOPIDOGREL BISULFATE 75 MG TAB PO SCH (10:00)
[2020-04-19] MEDS: NOREPINEPHRINE 8 MG/250ML KIT 250 ML IV SCH (10:45)
--- NOTE | 2020-04-19 11:52 | NUR ---
REPORT REPORT RECEIVED FROM EMILY RN, CARE ASSUMED. PT OBSERVED RESTING IN BED, POSITIONED ON SIDE. PT ON BIPAP MASK. OXYGEN SATURATION 91%. VS REMAINING STABLE AT THIS TIME. PT RESPIRATORY RATE ELEVATED 30'S. NO DISTRESS NOTED. EYES CLOSED AT THIS TIME. WILL CONTINUE TO MONITOR.
--- NOTE | 2020-04-19 12:55 | NUR ---
MD VISIT DR. NATALIE COLES AT BEDSIDE. MD AWARE OF BIPAP SETTINGS, VITAL SIGNS, AND LABS. MD CALLED AND SPOKE WITH SON NATALIE REGARDING PLAN OF CARE. MD WOULD LIKE TO CONTINUE TO HOLD P.O. MEDICATIONS AT THIS TIME. NEW ORDERS FOR IV METOPROLOL OBTAINED. OKAY WITH HOLDING PLAVIX AND ELIQUIS FOR SHORT PERIOD OF TIME.
--- NOTE | 2020-04-19 13:04 | NUR ---
RESTRAINTS ORDER NEW ORDER OBTAINED FOR SOFT WRIST RESTRAINT. PT NOT CURRENTLY RESTRAINED AT THIS TIME. PT HAS BEEN FREQUENTLY REMOVING BIPAP MASK ON PRIOR SHIFT EVEN WITH REORIENTATION. WILL ATTEMPT OTHER INTERVENTIONS BEFORE RESTRAINING PATIENT.
[2020-04-19] MEDS: DOXYCYCLINE 100MG/250ML 250 ML IV SCH ×2 (13:19→23:10)
[2020-04-19] MEDS: METOPROLOL TARTRATE 1MG/1ML-5ML VIAL IV SCH ×2 (14:25→22:00)
--- NOTE | 2020-04-19 14:26 | NUR ---
PAIN PT C/O LEFT SHOULDER PAIN AFTER REPOSITIONING. PRN MORPHINE GIVEN. PT RESTING. NO DISTRESS NOTED. VS REMAINING STABLE AT THIS TIME.
--- NOTE | 2020-04-19 15:00 | NUR ---
AZITHROMYCIN DOSE NOT GIVEN THIS MORNING. DAILY DOSE CHARTED YESTERDAY.
[2020-04-19] MEDS: AZITHROMYCIN 500MG/ 250ML 250 ML IV SCH (15:36)
--- NOTE | 2020-04-19 16:16 | NUR ---
DESATURATION PT OXYGEN SATURATION MAINTAINING 87-91%. PT ON BIPAP MASK, 100% FIO2. RESPIRATORY RATE ELEVATED 30'S. NO SIGNS OF PAIN OR DISTRESS NOTED AT THIS TIME. ALL OTHER VS REMAINING STABLE.
--- NOTE | 2020-04-19 18:44 | NUR ---
Respiratory note: RECEIVED PT ON BIPAP ([id number]), BIPAP CONNECTED TO RED OUTLET AND O2 SOURCE, ALARMS ARE SET AND AUDIBLE. AMBU BAG AND MASK AT BEDSIDE. BIPAP CHECK DONE FROM PTS ROOM DOOR DUE TO COVID PRECAUTIONS. WILL CONTINUE TO MONITOR.
--- NOTE | 2020-04-19 19:00 | NUR ---
Report received from LINETTE Chin. Patient on Bi-PAP: 12/04 Back-up Rate 12 FiO2 100%. IVF: Amiodarone 0.5 mg/hr; TPN at 46 ml/hr. Will continue with POC; and, will continue to monitor VS, focus on BP and HR, and clinical status.
--- NOTE | 2020-04-19 19:30 | NUR ---
REPORT REPORT GIVEN TO MAURICE SUE, CARE ENDORSED.
--- NOTE | 2020-04-19 19:50 | NUR ---
TPN bag exchanged to new bag.
[2020-04-19] MEDS ORDERED: TPN PER PHARMACY IV NR ×10 (20:00)
--- NOTE | 2020-04-19 20:00 | NUR ---
Medical - Non Violent Restraint Order Re-Newed by [facility] Hospitalist Dr. Mendes.
--- NOTE | 2020-04-19 20:00 | NUR ---
Patient restless and tachypneic. Patient medicated with Morphine 2 mg IVP.
[2020-04-19] MEDS: ATORVASTATIN 20 MG TAB PO SCH (21:53)
--- NOTE | 2020-04-19 21:55 | NUR ---
PO Rtn scheduled medications held per MD order.
--- NOTE | 2020-04-19 22:20 | NUR ---
Respiratory note: AT BEDSIDE IN FULL PPE, DUE TO COVID PRECAUTIONS. BIPAP CHECK DONE NO CHANGES MADE, MED NEB TX GIVEN INLINE VIA AEROGEN. WILL CONTINUE TO MONITOR. RN HERB MADE AWARE OF AEROSOLIZED TX RUNNING AT THIS TIME AND END TIME T BE ABLE TO GO BACK INTO ROOM WILL BE 2320.
[2020-04-20] VITALS (100 sets, daily range): BP systolic 100–155; BP diastolic 12–100
--- NOTE | 2020-04-20 | NUR ---
Accucheck 227 mg/dl. Patient covered with Regular Insulin 8 units SQ per Sliding Scale.
[2020-04-20] MEDS: ACCU-CHEK COMFORT CURVE STRIP VI SCH ×4 (00:12→17:36)
[2020-04-20] MEDS: InsuLIN REG 1unit/0.01ml Soln (100units/ml) SC SCH ×5 (00:14→23:56)
--- NOTE | 2020-04-20 02:23 | NUR ---
Respiratory note: ROUTINE BIPAP CHECK DONE FROM PTS ROOM DOOR DUE TO COVID PRECAUTIONS. NO CHANGE MADE WILL CONTINUE TO MONITOR.
--- NOTE | 2020-04-20 03:33 | NUR ---
Disciplinary Hearing Officer at [facility]. Sociology Teacher collected am labs from [facility]. Specimen given to Disciplinary Hearing Officer and specimen sent to lab.
[2020-04-20 04:34] LABS: Potassium 4.4 mmol/L (3.5-5.1)
[2020-04-20 04:38] LABS: Albumin 1.2 g/dL (3.4-5.0); BUN/Creatinine Ratio 36.7; Calcium 7.9 mg/dL (8.5-10.1); Magnesium 2.2 mg/dL (1.6-2.6)
[2020-04-20 04:40] LABS: Bilirubin, Total 3.6 mg/dL (0.2-1.0); Phosphorus 4.1 mg/dL (2.5-4.90); Total Protein 4.8 g/dL (6.4-8.2)
[2020-04-20] MEDS: amLODIPine BESYLATE 5 MG TAB PO SCH ×3 (06:00→22:00)
--- NOTE | 2020-04-20 06:00 | NUR ---
Rtn scheduled medication given. PO medication held due to MD order. Accucheck 190 mg/dl. Patient covered with Regular Insulin 4 units SQ per Sliding Scale.
[2020-04-20] MEDS: METOPROLOL TARTRATE 1MG/1ML-5ML VIAL IV SCH ×3 (06:11→22:16)
[2020-04-20] MEDS: BUDESONIDE (INHALATION) 0.5 MG/2 ML NEB NEB SCH ×2 (06:18→22:26)
[2020-04-20] MEDS: ALBUTEROL SULF 2.5 MG/0.5ML(0.5%) NEB SOLN NEB SCH ×3 (06:18→22:26)
[2020-04-20] MEDS: IPRATROPIUM BROM 0.5 MG/2.5ML INH SOL NEB SCH ×3 (06:18→22:26)
--- NOTE | 2020-04-20 07:30 | NUR ---
REPORT REPORT RECEIVED FROM MAURICE RN, CARE ASSUMED. PT OBSERVED RESTING IN BED, ON BIPAP MASK. OXYGEN SATURATION 88-89%. NO DISTRESS NOTED. VS NORMAL. WILL CONTINUE TO MONITOR.
--- NOTE | 2020-04-20 08:10 | NUR ---
INITIAL CONTACT PT RESTING IN BED, POSITIONED ON SIDE. AFEBRILE. DENIES PAIN. PATIENT NODS INTERMITTENTLY TO SIMPLE QUESTIONS. SEVERE WEAKNESS NOTED ON ALL EXTREMITIES. PULSES PALPABLE, PITTING EDEMA PRESENT ON UPPER EXTREMITIES. LUNGS COARSE AND DIMINISHED. OXYGEN SATURATION 85-89% ON BIPAP MASK WITH 100% FIO2. ELEVATED RESPIRATORY RATE 30-40'S. SCD'S ON BILATERAL LOWER EXTREMITIES. ALL EXTREMITIES OFF LOADED ON PILLOWS. PATIENT REPOSITIONED ON SIDE. ALARMS IN PLACE. CALL LIGHT WITHIN REACH. PT INSTRUCTED TO CALL FOR ASSISTANCE. WILL CONTINUE TO MONITOR.
--- NOTE | 2020-04-20 08:50 | NUR ---
DESATURATION PT REPOSITIONED IN BED ON LEFT SIDE. HEAD OF BED GREATER THAN 30 DEGREES. OXYGEN SATURATION DECREASED TO 85%, RESPIRATORY RATE ELEVATED 45-48. PT INSTRUCTED TO SLOW RATE OF BREATHING. PATIENT DENIES PAIN AT THIS TIME. ALL OTHER VS REMAIN STABLE. NO DISTRESS NOTED.
[2020-04-20] MEDS: AZITHROMYCIN 500MG/ 250ML 250 ML IV SCH (09:34)
[2020-04-20] MEDS: CLOPIDOGREL BISULFATE 75 MG TAB PO SCH (09:36)
[2020-04-20] MEDS: CHOLECALCIFEROL (VITD3) 2,000 UNIT CAP PO SCH (09:36)
[2020-04-20] MEDS: NOREPINEPHRINE 8 MG/250ML KIT 250 ML IV SCH (09:36)
[2020-04-20] MEDS: ZINC SULFATE 220mg CAP or TAB PO SCH (09:36)
[2020-04-20] MEDS: Sitagliptin Phosphate (Januvia) 100 MG TAB PO SCH (09:36)
[2020-04-20] MEDS: APIXABAN 2.5 MG TAB PO SCH ×2 (09:36→22:00)
[2020-04-20] MEDS: PANTOPRAZOLE 40 MG TAB PO SCH (09:36)
[2020-04-20] MEDS: ASCORBIC ACID 1,000 MG TAB PO SCH ×2 (09:36→22:00)
[2020-04-20] MEDS: LISINOPRIL 20 MG TAB PO SCH ×2 (09:36→22:00)
[2020-04-20] MEDS: AMIODARONE 450mg/250ml AE 250 ML IV SCH (09:37)
--- NOTE | 2020-04-20 09:44 | NUR ---
MEDICATIONS HELD ALL P.O. MEDICATIONS HELD PER MD ORDER. HOLDING IV LASIX UNTIL CLEARED WITH MD DUE TO INCREASING BUN/CREATININE LEVEL.
[2020-04-20] MEDS ORDERED: PANTOPRAZOLE 40 MG/10 ML VIAL INJ IV SCH (10:00)
--- NOTE | 2020-04-20 10:24 | NUR ---
Nutrition Followup Notes Pt wt is 81.4 kg, pt with +2 pitting edema in each arm. Pt is positive for COVID. Pt on BiPAP per Rn note. Spoke to RN, pt is NPO. TPN ordered at 46 ml/hr to provide 1150 kcal and 50g protein, 950 NPC. This provides 56-68% of energy needs and 77-100% of protein needs. Est energy needs BW 68 [id number] kcal (25-30 kcal/kg BW), Est protein needs: 50-65g (0.6-0.8g/kg BW r/t CARIE, elevated RFTs, increase if CARIE resolves) Will reassess prn. LABS: BUN 73H, Creat 1.99H, Ca 7.9L, Alb 1.2L, GLUC 190H GI: Pt with no BM noted per RN note since last followup. BS: 14 mod risk. Refer to wound assessment report for full details. PES: 1) Altered nutrition related lab values r.t current chronic medical condition aeb elev BUN severe hypoalb 2) Increased nutrient needs r/t chronic medical condition aeb pt`s with wounds severe hypoalb poor PO Comments 1) Continue TPN to meet >75% of needs while pt PO intake is poor 2) consider MVI/C bid 3) refer to CDE on DC 4) advance diet when medically feasible 5) continue assistance with meals 6) continue current plan of care
[2020-04-20] MEDS: MORPHINE SULF INJ 2 MG/ML SYRINGE 1ML IV PRN (11:04)
[2020-04-20] MEDS: DOXYCYCLINE 100MG/250ML 250 ML IV SCH ×2 (11:15→23:33)
--- NOTE | 2020-04-20 12:54 | NUR ---
MD UPDATE CALLED FOR UPDATE ON PATIENT. MD AWARE OF LABS AND RESPIRATORY STATUS. NO NEW ORDERS OBTAINED AT THIS TIME.
[2020-04-20] MEDS: FUROSEMIDE 40 MG/4 ML VIAL IV SCH (13:18)
--- NOTE | 2020-04-20 14:37 | NUR ---
ROUNDING NOTE PT AWAKE AND ALERT. PT RESTING, DENIES PAIN AT THIS TIME. PT TOLERATED BEING TURNED ON SIDE. OXYGEN SATURATION STILL ONLY MAINTAINING 85-86%. BLOOD PRESSURE TRENDING LOW. BLOOD PRESSURE CUFF ADJUSTED. NBP RECHECKED, SBP 154/40 ON LEFT CALF. HEART RATE 96 BPM. WILL CONTINUE TO MONITOR PRIOR TO METOPROLOL ADMINISTRATION.
--- NOTE | 2020-04-20 17:00 | NUR ---
WOUND CARE SKIN TEARS ON BILATERAL ARMS CLEANSED AND DRESSED PER WOUND CARE NURSE RECOMMENDATION. SACRAL WOUND CLEANSED AND NEW OPTIFOAM PLACED. PARTIAL LINEN CHANGE COMPLETE. PATIENT THEN REPOSITIONED ON SIDE. OXYGEN SATURATION DECREASED TO 80%, BUT ONCE ACTIVITY COMPLETE, OXYGEN SATURATION RETURNED TO 84%. PATIENT DENIES PAIN OR DISTRESS. PATIENT KEEPS EYES OPEN AT ALL TIMES. STILL ABLE TO NOD YES OR NO TO SIMPLE QUESTIONS. COARSE LUNG SOUNDS PRESENT, NO SECRETIONS PRESENT. WILL CONTINUE TO MONITOR.
--- NOTE | 2020-04-20 19:04 | NUR ---
REPORT REPORT GIVEN TO MAURICE SUE, CARE ENDORSED.
--- NOTE | 2020-04-20 19:14 | NUR ---
Report received from LINETTE Katz. Patient on Bi-PAP 12/04, BR 12, FiO2 100%. IVF: Amio drip at 0.5 mg/hr; TPN at 46 ml/hr. Will continue with POC; and, will continue to monitor VS, focus on HR and BP, and clinical status.
--- NOTE | 2020-04-20 19:33 | NUR ---
Dr. Merritt rounding on patient.
[2020-04-20] MEDS ORDERED: TPN PER PHARMACY IV NR ×9 (20:00)
--- NOTE | 2020-04-20 20:00 | NUR ---
TPN bag exchanged to new bag.
[2020-04-20] MEDS: ATORVASTATIN 20 MG TAB PO SCH (22:00)
[2020-04-20] MEDS ORDERED: methylPREDNISolone SOD SUCC 40 MG/ML VL IV SCH (22:00)
--- NOTE | 2020-04-20 22:18 | NUR ---
Rtn scheduled medications given. See e-MAR. PO medications held due to MD order.
--- NOTE | 2020-04-20 22:30 | NUR ---
RT at bedside. Pressure changes to Bi-PAP: 14/06.
--- NOTE | 2020-04-20 23:15 | NUR ---
Rtn scheduled medication given. See e-MAR.
[2020-04-21] VITALS (40 sets, daily range): BP systolic 65–179; BP diastolic 10–75
[2020-04-21] MEDS: ACCU-CHEK COMFORT CURVE STRIP VI SCH ×2 (00:01→06:00)
--- NOTE | 2020-04-21 00:01 | NUR ---
Accucheck 212 mg/dl. Patient covered with Regular Insulin 8 units SQ per Sliding Scale.
[2020-04-21] MEDS: AMIODARONE 450mg/250ml AE 250 ML IV SCH (01:34)
--- NOTE | 2020-04-21 01:34 | NUR ---
Amiodarone drip exchanged to new bag.
--- NOTE | 2020-04-21 03:20 | NUR ---
Music Copyist at room side. Chief Port Director collected am labs. Specimen given to Music Copyist and then specimen sent to lab.
[2020-04-21 04:27] LABS: Potassium 5.1 mmol/L (3.5-5.1)
--- NOTE | 2020-04-21 04:30 | NUR ---
Lab called with Critical Lab: [facility]. Will endorse to Day Shift.
[2020-04-21 04:34] LABS: Albumin 1.1 g/dL (3.4-5.0); BUN/Creatinine Ratio 35.7; Bilirubin, Total 4.3 mg/dL (0.2-1.0); Calcium 7.6 mg/dL (8.5-10.1); Magnesium 2.4 mg/dL (1.6-2.6); Total Protein 4.5 g/dL (6.4-8.2)
--- NOTE | 2020-04-21 04:40 | NUR ---
Partial bed bath and linen change.
--- NOTE | 2020-04-21 05:17 | NUR ---
PCXR done at bedside.
[2020-04-21] MEDS: amLODIPine BESYLATE 5 MG TAB PO SCH (06:00)
[2020-04-21] MEDS: METOPROLOL TARTRATE 1MG/1ML-5ML VIAL IV SCH (06:00)
--- NOTE | 2020-04-21 06:00 | NUR ---
Rtn scheduled medication given. See e-MAR. PO medication held due to MD order. Accucheck 244 mg/dl. Patient covered with Regular Insulin 8 units SQ per Sliding Scale.
[2020-04-21] MEDS: InsuLIN REG 1unit/0.01ml Soln (100units/ml) SC SCH (06:15)
[2020-04-21] MEDS: ALBUTEROL SULF 2.5 MG/0.5ML(0.5%) NEB SOLN NEB SCH (06:43)
[2020-04-21] MEDS: IPRATROPIUM BROM 0.5 MG/2.5ML INH SOL NEB SCH (06:43)
[2020-04-21] MEDS: BUDESONIDE (INHALATION) 0.5 MG/2 ML NEB NEB SCH (06:43)
--- NOTE | 2020-04-21 07:25 | NUR ---
REPORT REPORT RECEIVED FROM MAURICE RN, CARE ASSUMED. PT RESTING IN BED ON BIPAP MASK. OXYGEN SATURATION 90%. HEART RATE 70'S SINUS RHYTHM. NO OTHER DISTRESS NOTED. WILL CONTINUE TO MONITOR.
--- NOTE | 2020-04-21 08:50 | NUR ---
INITIAL CONTACT PT OBSERVED RESTING IN BED. ENTERED ROOM 0825, NO DISTRESS NOTED. PATIENT EYES OPENING BUT NOT TRACKING AT THIS TIME OR MOVING UPPER EXTREMITIES. PULSES WEAK BUT PALPABLE RADIALLY. SINUS RHYTHM 70'S NOTED ON BEDSIDE MONITOR. BLOOD PRESSURE TRENDING DOWN 60-70'S SYSTOLIC. BLOOD PRESSURE CUFF MOVED TO RIGHT UPPER ARM. REPEAT NBP. SBP STILL 70'S. DUMPMAN CALLED TO HANG LEVOPHED DRIP. LUNGS CLEAR ANTERIORLY, RESPIRATIONS ARE EVEN AND UNLABORED, OXYGEN SATURATION 88-90% ON BIPAP. (0827) EDUCATED PATIENT ON IMPORTANCE OF REPOSITIONING. PATIENT NOT RESPONDING TO VERBAL COMMANDS. PATIENT REPOSITION ON SIDE. STILL NOT RESPONDING. STERNAL RUB AND PAINFUL STIMULI USED. PATIENT NOT RESPONDING TO EITHER, STARING BLANKLY. NOTIFIED DUMPMAN TO CALL MD TO NOTIFY CHANGES IN MENTAL STATUS. LEVOPHED DRIP STARTED AND AMIODARONE DRIP TURNED OFF. BLOOD PRESSURE RECYCLED 200'S SYSTOLIC. HEART RATE CONTINUED TO SLOWLY DECREASE FROM 72 BPM TO 62 BPM. RHYTHM CHANGE TO JUNCTIONAL. BLOOD PRESSURE UNABLE TO OBTAIN. HEART RATE LOUANN DOWN 40'S NO PULSE NOTED, AGONAL BREATHING. CODE BLUE INITIATED CPR BEGAN. SEE SOREN BLUE NOTES.
[2020-04-21] MEDS ORDERED: PHENYLEPHRINE IV 250 ML IV SCH (09:04)
--- NOTE | 2020-04-21 09:08 | NUR ---
DR. ESTRADA CALLED BACK HE SAID TO CALL THE SON THAT HE SPOKE WITH HIM FOR THE LAST TWO DAYS THAT HE IS TRYING TO COME IN FROM [place] TO SEE HIM. HE SAY TO CALL HIM TO LET HIM KNOW WHAT IS HAPPENING AND TO MAKE A DECISION ON WHEN TO STOP CODING THE PT. AWARE THAT PT CODED, CPR AND EPI WERE GIVEN AND PT WAS STARTED ON LEVOPHED AT 30 sima/min FOR BP SUPPORT LINETTE LEMUS INSIDE WITH PT. PT IS COVID 19 +.
--- NOTE | 2020-04-21 09:10 | NUR ---
Family updated on pt status Family of ANTONIA OSUNA was called and was updated on patient's status and change of condition. All questions and concerns addressed, son Tam decided to make pt. a Do Not Resuscitate as code status and had another RN Gianna Zuniga witness the DNR decision and son verbalized understanding. Son is on his way from [facility] to see pt.
--- NOTE | 2020-04-21 09:11 | NUR ---
CODE ANA STOPPED PER PT'S SON HE MADE PT FULL DNR. HE SPOKE TO LINETTE MORAN AND IT WAS WITNESS BY ME. PT'S SON WAS PLACED ON SPEAKER AT THAT TIME. HE IS IN [place] STILL HAS ABOUT AN HOUR TO COME TO SEE HIS FATHER.
[2020-04-21] MEDS ORDERED: EPINEPHrine HCL 1 MG/10 ML SYRG IV ONE (09:19)
[2020-04-21] MEDS ORDERED: SODIUM BICARBONATE 8.4% INJ 50ML SYRINGE IV ONE (09:19)
--- NOTE | 2020-04-21 09:25 | NUR ---
PRONOUNCE AT BEDSIDE TO PRONOUNCE.
--- NOTE | 2020-04-21 10:20 | NUR ---
[facility] [id number] BODY RELEASED.
--- NOTE | 2020-04-21 10:30 | NUR ---
MD UPDATE NOTIFIED OF PATIENTS .
--- NOTE | 2020-04-21 11:13 | NUR ---
FAMILY PATIENT SON AT BEDSIDE.
--- NOTE | 2020-04-21 12:31 | NUR ---
BELONGINGS SON GIVEN WALLET AND CELL PHONE.
--- NOTE | 2020-04-21 13:40 | NUR ---
POST-MORTEM CARE PERFORMED.
[2020-04-21] MEDS ORDERED: TPN PER PHARMACY IV NR ×7 (20:00)
== END 2020-04-21 09:20 | disposition expired | DRG 871 ==
LOC: EDBD 10:50 → ER 10:50 → TELE 10:51 → TELE-WESTW 17:23 → TELE-EAST 04-12 06:25 → ICU WEST 04-12 09:45
PROVIDERS: ADMIT Internal Medicine; ATTEND Internal Medicine
PROC: XW033E5 Introduction of Remdesivir Anti-infective into Peripheral Vein, Percutaneous Approach, New Technology Group 5 (ICD-10-PCS; 2020-04-12)
PROC: 02HV33Z Insertion of Infusion Device into Superior Vena Cava, Percutaneous Approach (ICD-10-PCS; 2020-04-12)
PROC: 0T9B70Z Drainage of Bladder with Drainage Device, Via Natural or Artificial Opening (ICD-10-PCS; 2020-04-13)
PROC: XW033E5 Introduction of Remdesivir Anti-infective into Peripheral Vein, Percutaneous Approach, New Technology Group 5 (ICD-10-PCS; 2020-04-13)
PROC: XW033E5 Introduction of Remdesivir Anti-infective into Peripheral Vein, Percutaneous Approach, New Technology Group 5 (ICD-10-PCS; 2020-04-14)
PROC: XW033E5 Introduction of Remdesivir Anti-infective into Peripheral Vein, Percutaneous Approach, New Technology Group 5 (ICD-10-PCS; 2020-04-15)
PROC: XW13325 Transfusion of Convalescent Plasma (Nonautologous) into Peripheral Vein, Percutaneous Approach, New Technology Group 5 (ICD-10-PCS; principal; 2020-04-16)
PROC: 5A09557 Assistance with Respiratory Ventilation, Greater than 96 Consecutive Hours, Continuous Positive Airway Pressure (ICD-10-PCS; 2020-04-16)
DX: A41.89 Other specified sepsis (principal); U07.1 COVID-19; N17.0 Acute kidney failure with tubular necrosis; J12.89 Other viral pneumonia; J96.01 Acute respiratory failure with hypoxia; R65.21 Severe sepsis with septic shock; E87.2 Acidosis; I48.20 Chronic atrial fibrillation, unspecified; J98.11 Atelectasis; R53.1 Weakness; E11.9 Type 2 diabetes mellitus without complications; R74.0 Nonspecific elevation of levels of transaminase and lactic acid dehydrogenase [LDH]; E88.09 Other disorders of plasma-protein metabolism, not elsewhere classified; Z66 Do not resuscitate; I50.9 Heart failure, unspecified; Z86.73 Personal history of transient ischemic attack (TIA), and cerebral infarction without residual deficits; Z79.01 Long term (current) use of anticoagulants; Z88.0 Allergy status to penicillin; Z79.899 Other long term (current) drug therapy; Z79.84 Long term (current) use of oral hypoglycemic drugs; Z79.4 Long term (current) use of insulin; Z90.49 Acquired absence of other specified parts of digestive tract; I25.2 Old myocardial infarction; I11.0 Hypertensive heart disease with heart failure; I25.10 Atherosclerotic heart disease of native coronary artery without angina pectoris; I46.9 Cardiac arrest, cause unspecified
CPT/HCPCS: 36415; 36600; 71045; 73200; 80048; 80053; 81001; 82040; 82728; 82805; 82962; 83605; 83615; 83735; 84100; 84478; 85025; 85379; 85610; 85730; 86141; 86850; 86900; 86901; 87040; 87081; 87426; 93005; 94003; 94640; 94660; 97110; 97116; 97530; A4565; C9113; G0378; J1815; J1956; J2405; J3480; J3490; J7060; J7131